=== PATIENT | male | born 1945 | race Caucasian/White ===

== ENCOUNTER 2019-02-27 16:52 | Observation (INO) | payer MEDICARE, OTHER ==
[~2019-02-27] VITALS: Ht 177.8 cm; Wt 111.9 kg
[~2019-02-27 16:52] MED LIST: ACET325; AMIO200 PO; AMLO10 PO; AMOX875 PO; ASPI81CH PO; ATEN50 PO; ATOR40TA PO; Aspirin EC81 MG PO; Bactrim Ds Tab1 EACH PO; CHOL10002 PO; DICL25ER PO; DICLOFENAC 50MG PO; DOCU100 PO; Diclofenac Sodi50 MG PO; FIBER500 MG PO; FURO20 PO; GLIM2 PO; GLIM4 PO; HYDACE5325 PO; HYDR1TAB94 PO; Hydrocodone-Ap1 EA23 PO; INVANZ IV; Invanz1 GM IV; LISI20 PO; LISI5 PO; LISINOPRIL PO; LOPE2C PO; Lisinopril2.5 MG PO; METF500 PO; MULT50L PO; Micro-K10 MEQ PO; NORVASC PO; OXYACE5T PO; OXYC5 PO; PIOG30 PO; POLY500 PO; POTA8 PO; PYRI100 PO; ROSU5 PO; SIMV10 PO; SIMV80 PO; SITA100T2 PO; TRAM50 PO; WARF5 PO; Zestril40 MG PO
[2019-02-27 17:46] LABS: BASOPHILS ABSOLUTE AUTO 0.06 K/mm3 (0.00-0.23); BASOPHILS PERCENT AUTO 1 % (0-2); EOSINOPHILS ABSOLUTE AUTO 0.17 K/mm3 (0.00-0.68); EOSINOPHILS PERCENT AUTO 1 % (0-6); Hematocrit 30.7 % (37.0-53.0); Hemoglobin 9.8 g/dL (13.5-17.5); IMMATURE GRAN ABSOLUTE AUTO 0.05 K/mm3 (0.00-0.10); IMMATURE GRAN PERCENT AUTO 0 % (0-1); LYMPHOCYTES ABSOLUTE AUTO 2.27 K/mm3 (0.84-5.20); LYMPHOCYTES PERCENT AUTO 19 % (21-46); MONOCYTES ABSOLUTE AUTO 1.15 K/mm3 (0.16-1.47); MONOCYTES PERCENT AUTO 9 % (4-13); Mean Corpuscular HGB 29.1 pg (26.0-34.0); Mean Corpuscular HGB Conc 31.9 g/dL (31.5-36.5); Mean Corpuscular Volume 91 fL (80-100); Mean Platelet Volume 10.6 fL (9.1-12.4); NEUTROPHILS ABSOLUTE AUTO 8.55 K/mm3 (1.96-9.15); NEUTROPHILS PERCENT AUTO 70 % (41-73); Platelet Count 310 K/mm3 (150-400); RDW Coefficient Variation 14.6 % (11.7-14.2); RDW Standard Deviation 48.2 fL (35.1-46.3); Red Blood Cell Count 3.37 M/mm3 (4.30-5.90); White Blood Cell Count 12.25 K/mm3 (4.00-11.30)
[2019-02-27 18:09] LABS: Alanine Aminotransfer (ALT/SGP 25 U/L (12-78); Albumin, Blood 3.4 g/dL (3.4-5.0); Albumin/Globulin Ratio 1.1 (0.8-1.8); Alk Phos 103 U/L (50-136); Anion Gap 6 mmol/L (6-16); Aspartate Aminotrans (AST/SGOT 22 U/L (12-37); Bilirubin, Total 0.3 mg/dL (0.1-1.0); Blood Urea Nitrogen 37 mg/dL (8-24); Bun/Creatinine Ratio 29.4 (12.0-20.0); CO2, Blood 25 mmol/L (21-32); Calcium, Blood 8.8 mg/dL (8.5-10.1); Chloride, Blood 107 mmol/L (98-108); Creatinine, Blood 1.26 mg/dL (0.60-1.20); Globulin, Blood 3.2 g/dL (2.2-4.0); Glomerular Filtration Rate 60 (60-); Glucose, Blood 136 mg/dL (70-99); Potassium, Blood 5.2 mmol/L (3.5-5.5); Sodium, Blood 138 mmol/L (136-145); Total Protein, Blood 6.6 g/dL (6.4-8.2); Troponin I <0.015 ng/mL (0.000-0.040)
[2019-02-27 18:16] LABS: Prothrombin Time Results 62.4 Sec (9.7-11.5)
[2019-02-27 18:21] LABS: International Normalized Ratio 7.03
[2019-02-27] MEDS ORDERED: METO50ER PO (19:23)
[2019-02-27] MEDS ORDERED: EZET10 PO (19:24)
[2019-02-27] MEDS ORDERED: Crestor40 MG PO (19:24)
[2019-02-27] MEDS ORDERED: Metformin HCl1000 MG PO (20:05)
[2019-02-27] MEDS ORDERED: Amlodipine Besy10 MG PO (20:06)
[2019-02-27] MEDS ORDERED: WARF5 PO (20:11)
[2019-02-27] MEDS ORDERED: FURO40 PO (20:12)
[2019-02-28 01:16] LABS: Hematocrit 26.7 % (37.0-53.0); Hemoglobin 8.6 g/dL (13.5-17.5)
[2019-02-28 01:30] LABS: International Normalized Ratio 2.15
[2019-02-28 02:09] LABS: Prothrombin Time Results 21.3 Sec (9.7-11.5)
--- NOTE | 2019-02-28 06:30 | NUR ---
SHIFT SUMMARY PT WAS A NEW ADMIT DURING THE NIGHT, ARRIVING ON THE FLOOR AT 2049. HE WAS ADMITTED FOR A SUPRATHERAPEUTIC INR WHILE ON COUMADIN, WITH A RECENT HX OF DARK STOOLS. PT IS A&O X 4, AND ABLE TO AMBULATE INDEPENDENTLY. NO COMPLAINTS OF PAIN, NAUSEA OR SOB DURING THE NIGHT. VITAL SIGNS STABLE. NO OTHER ACUTE CHANGES IN PT CONDITION NOTED DURING THE NIGHT. WILL CONTINUE TO MONITOR AND TREAT PER EMAR UNTIL HAND OFF TO DAY SHIFT RN.
[2019-02-28 07:36] LABS: BASOPHILS ABSOLUTE AUTO 0.05 K/mm3 (0.00-0.23); BASOPHILS PERCENT AUTO 1 % (0-2); EOSINOPHILS ABSOLUTE AUTO 0.18 K/mm3 (0.00-0.68); EOSINOPHILS PERCENT AUTO 2 % (0-6); Hematocrit 27.7 % (37.0-53.0); Hemoglobin 8.7 g/dL (13.5-17.5); IMMATURE GRAN ABSOLUTE AUTO 0.03 K/mm3 (0.00-0.10); IMMATURE GRAN PERCENT AUTO 0 % (0-1); LYMPHOCYTES PERCENT AUTO 18 % (21-46); MONOCYTES PERCENT AUTO 9 % (4-13); Mean Corpuscular HGB 28.8 pg (26.0-34.0); Mean Corpuscular HGB Conc 31.4 g/dL (31.5-36.5); Mean Corpuscular Volume 92 fL (80-100); Mean Platelet Volume 10.5 fL (9.1-12.4); NEUTROPHILS ABSOLUTE AUTO 7.27 K/mm3 (1.96-9.15); NEUTROPHILS PERCENT AUTO 70 % (41-73); Platelet Count 284 K/mm3 (150-400); RDW Coefficient Variation 14.8 % (11.7-14.2); RDW Standard Deviation 48.8 fL (35.1-46.3); Red Blood Cell Count 3.02 M/mm3 (4.30-5.90); White Blood Cell Count 10.33 K/mm3 (4.00-11.30)
[2019-02-28] MEDS ORDERED: FERSU300 PO (10:55)
--- NOTE | 2019-02-28 11:40 | NUR ---
DISCHARGE SUMMARY PATIENT NO ACUTE CONCERNS. ALL MEDICAITON AND INFORMATION QUESTIONS GIVEN TO PATIENT PRIOR TO DISCHARGE. PATIENT IV REMOVED AND PATIENT WHEELED DOWN.
== END 2019-02-28 11:19 | disposition home or self-care (01) ==
LOC: ER 16:52 → MEDS 16:54 → ER 19:54 → MEDS 19:54 → ENPENDDIS 02-28 10:12 → MEDS 02-28 11:19
PROVIDERS: Emergency Medicine; ADMIT Family Medicine
DX: R79.1 Abnormal coagulation profile (principal); K57.91 Diverticulosis of intestine, part unspecified, without perforation or abscess with bleeding; D50.0 Iron deficiency anemia secondary to blood loss (chronic); F32.9 Major depressive disorder, single episode, unspecified; E11.9 Type 2 diabetes mellitus without complications; I10 Essential (primary) hypertension; I48.92 Unspecified atrial flutter; E78.5 Hyperlipidemia, unspecified; I25.10 Atherosclerotic heart disease of native coronary artery without angina pectoris; G89.29 Other chronic pain; M48.00 Spinal stenosis, site unspecified; Z95.1 Presence of aortocoronary bypass graft; Z79.82 Long term (current) use of aspirin; Z79.01 Long term (current) use of anticoagulants; Z79.84 Long term (current) use of oral hypoglycemic drugs; Z79.899 Other long term (current) drug therapy
CPT/HCPCS: 36415; 80053; 82272; 82947; 84484; 85014; 85018; 85025; 85610; 86850; 86900; 86901; 94660; 94762; 96365; 99284-25; J3430

== ENCOUNTER 2019-03-26 01:40 | Inpatient (IN) | payer MEDICARE, OTHER ==
[~2019-03-26] VITALS: Ht 180.3 cm; Wt 114.4 kg
[~2019-03-26 01:40] MED LIST changes: +Amlodipine Besy10 MG PO; +Crestor40 MG PO; +EZET10 PO; +FERSU300 PO; +FURO40 PO; +METO50ER PO; +Metformin HCl1000 MG PO
[2019-03-26 02:03] LABS: BASOPHILS ABSOLUTE AUTO 0.04 K/mm3 (0.00-0.23); BASOPHILS PERCENT AUTO 0 % (0-2); EOSINOPHILS ABSOLUTE AUTO 0.07 K/mm3 (0.00-0.68); EOSINOPHILS PERCENT AUTO 0 % (0-6); Hematocrit 30.3 % (37.0-53.0); Hemoglobin 9.4 g/dL (13.5-17.5); IMMATURE GRAN ABSOLUTE AUTO 0.09 K/mm3 (0.00-0.10); IMMATURE GRAN PERCENT AUTO 1 % (0-1); LYMPHOCYTES ABSOLUTE AUTO 0.84 K/mm3 (0.84-5.20); LYMPHOCYTES PERCENT AUTO 5 % (21-46); MONOCYTES ABSOLUTE AUTO 1.18 K/mm3 (0.16-1.47); MONOCYTES PERCENT AUTO 7 % (4-13); Mean Corpuscular HGB 28.6 pg (26.0-34.0); Mean Corpuscular Volume 92 fL (80-100); NEUTROPHILS ABSOLUTE AUTO 14.89 K/mm3 (1.96-9.15); NEUTROPHILS PERCENT AUTO 87 % (41-73); Platelet Count 237 K/mm3 (150-400); RDW Coefficient Variation 13.7 % (11.7-14.2); RDW Standard Deviation 46.6 fL (35.1-46.3); Red Blood Cell Count 3.29 M/mm3 (4.30-5.90); White Blood Cell Count 17.11 K/mm3 (4.00-11.30)
[2019-03-26] MEDS ORDERED: ESCI10 PO (02:12)
[2019-03-26 02:32] LABS: Alanine Aminotransfer (ALT/SGP 18 U/L (12-78); Albumin, Blood 3.3 g/dL (3.4-5.0); Albumin/Globulin Ratio 0.9 (0.8-1.8); Alk Phos 99 U/L (50-136); Anion Gap 11 mmol/L (6-16); Aspartate Aminotrans (AST/SGOT 15 U/L (12-37); Bilirubin, Total 0.8 mg/dL (0.1-1.0); Blood Urea Nitrogen 28 mg/dL (8-24); Bun/Creatinine Ratio 23.3 (12.0-20.0); CO2, Blood 24 mmol/L (21-32); Chloride, Blood 103 mmol/L (98-108); Globulin, Blood 3.6 g/dL (2.2-4.0); Glomerular Filtration Rate >60 (60-); Glucose, Blood 201 mg/dL (70-99); Potassium, Blood 4.5 mmol/L (3.5-5.5); Sodium, Blood 138 mmol/L (136-145); Total Protein, Blood 6.9 g/dL (6.4-8.2); Troponin I 0.139 ng/mL (0.000-0.040)
[2019-03-26 03:16] LABS: International Normalized Ratio 1.15
--- NOTE | 2019-03-26 06:23 | NUR ---
SHIFT SUMMARY: PATIENT ARRIVED TO PCU5 VIA GURNEY FROM ER AT APPROX 0500, ADMISSION COMPLETED. PATIENT SKIN C/D/I, ABLE TO PIVOT TRANSFER FROM GURNEY TO BED WITH ONE PERSON ASSIST. PATIENT NEEDS ONE PERSON ASSIST WITH FWW FOR WALKING. PATIENT ORIENTED TO ROOM, CALL LIGHT AND HOSPITAL POLICIES. VSS, CALL LIGHT WITHIN REACH, BED LOW AND LOCKED WITH EXIT ALARM ON.
--- NOTE | 2019-03-26 08:15 | NUR ---
PT IS RESTING IN BED WITH NO COMPLAINTS OF SOB AND HE IS ALERT AND ORIENTED. PT IS WEARING OXYGEN 4L VIA NC. LUNGS ARE DIM AND CRACKLES NOTED BILAT BASES. PT ENCOURAGED TO DEEP BREATH AND COUGH. PT IS MEDICAL STATUS AND WILL TRANSFER TO ROOM 355 ONCE REPORT IS GIVEN.
--- NOTE | 2019-03-26 08:50 | NUR ---
PT TRANSFERRED TO MEDICAL FLOOR ROOM 355. REPORT CALLED TO MIRI LAW. BELONGINGS GATHERED AND TRANSPORTED WITH PT. PT WAS ESCORTED VIA WHEELCHAIR BY RN TO HIS NEW ROOM.
--- NOTE | 2019-03-26 10:41 | NUR ---
RECIEVED NOTIFICATION OF CRITICAL LAB VALUE. CALLED DR CRUZ'S OFFICE AND LEFT A MESSAGE. CALLED ANSWERING SERVICE AND SPOKE TO DR CRUZ. PT TROPONIN WAS CRITICALLY HIGH 4.9 DR CRUZ AWARE SHE WILL PUT IN ORDERS.
--- NOTE | 2019-03-26 14:25 | NUR ---
CALLED ANSWERING SERVICE- PT INCREASED SLIGHTLY IN RESP RATE AND SOUNDS MORE WHEEZY THAN PREVIOUS. CALLED RT FOR A TREATMENT NO ORDER; CALLED ANSWERING SERVICE TO GET ORDER FROM DR CRUZ FOR BREATHING Tx PROTOCOL.
--- NOTE | 2019-03-26 18:41 | NUR ---
SHIFT SUMMARY- PT TRANSFERED TO MEDICAL FLOOR THEN RECIEVED A CRITICAL LAB. CALLED DR CRUZ CONSULT FOR CARDIOLOGY CALLED TO DR MENSAH; HE CAME TO SEE THE PT. HEPARIN DRIP STARTED. PT PLACED ON TELE, EKG COMPLETED. LAST TROPONIN DRAWN AT 1801 AWAITING RESULT. PT DENIES ANY CHEST PAIN. PT WAS NOTED TO BE WHEEZING CALLED FOR B/D PROTOCOL. RT ADMINSTERED BREATHING Tx. PT HAS CPAP AT NIGHT AND CONT BIOX. PT DID HAVE AN ELEVATED TEMP AFTER TYLENOL OF 102.6. REDUCED THE ROOM TEMP, PT O2 SATS 88-91 ON 4L. INCREASED TO 5L VIA NC AND SATS CAME UP TO 92-94. PT TEMP BROKE A LITTLE LATER AND LAST CHECK TEMP WAS 98.2. PT HAS RECIEVED 80 MG IV LASIX. SO FREQUENTLY VISITS THE BATHROOM.
--- NOTE | 2019-03-26 23:47 | NUR ---
ASSUMED CARE OF PATIENT AT APPROXIMATELY 2009 FROM MIRI Santillan RN. PATIENT ALERT AND ORIENTED; ONE ASSIST OUT OF BED W/ FWW; CHRONIC LEFT LEG WEAKNESS; USES WALKER OR CANE AT BASELINE. PATIENT DENIES CP/PRESSURE, PAIN ELSEWHERE, DIZZINESS OR NAUSEA. PATIENT HAS CRITICALLY HIGH TROPONINS; HEPARIN GTT. NSR W/ BBB ON TELE; OXYGEN SATURATION ABOVE 90% ON 3LPM VIA NC OR CPAP. PATIENT HAS BEEN INCONTINENT OF URINE THREE TIMES SINCE ARRIVAL TO UNIT; PATIENT REPORTS DUE TO LASIX IV; REPORTS HE CANT CONTROL IT SOMETIMES; ATTENDS IN PLACE. OTHER PIV S/L. PATIENT EDUCATED ON NPO AT MIDNIGHT FOR POSSIBLE PROCEDURE IN AM. CALLED [employer] CERTIFIED POWERPLANT MECHANIC SIMON TO REPORT NO TROPONIN SCHEDULED AFTER 1800 TROPONIN; ORDERS RECIEVED. PATIENT CURRENTLY RESTING IN BED; CALL LIGHT IN REACH; BED IN LOWEST POSISTION; BED ALARM ON; WILL CONTINUE TO MONITOR AND ASSESS UNTIL END OF SHIFT.
[2019-03-27 01:13] LABS: BASOPHILS ABSOLUTE AUTO 0.05 K/mm3 (0.00-0.23); BASOPHILS PERCENT AUTO 0 % (0-2); EOSINOPHILS ABSOLUTE AUTO 0.07 K/mm3 (0.00-0.68); EOSINOPHILS PERCENT AUTO 1 % (0-6); Hematocrit 26.7 % (37.0-53.0); Hemoglobin 8.3 g/dL (13.5-17.5); IMMATURE GRAN ABSOLUTE AUTO 0.05 K/mm3 (0.00-0.10); IMMATURE GRAN PERCENT AUTO 0 % (0-1); LYMPHOCYTES ABSOLUTE AUTO 1.24 K/mm3 (0.84-5.20); LYMPHOCYTES PERCENT AUTO 10 % (21-46); MONOCYTES ABSOLUTE AUTO 1.22 K/mm3 (0.16-1.47); MONOCYTES PERCENT AUTO 10 % (4-13); Mean Corpuscular HGB 28.2 pg (26.0-34.0); Mean Corpuscular HGB Conc 31.1 g/dL (31.5-36.5); Mean Corpuscular Volume 91 fL (80-100); Mean Platelet Volume 10.7 fL (9.1-12.4); NEUTROPHILS ABSOLUTE AUTO 10.23 K/mm3 (1.96-9.15); NEUTROPHILS PERCENT AUTO 80 % (41-73); Platelet Count 222 K/mm3 (150-400); RDW Coefficient Variation 13.6 % (11.7-14.2); RDW Standard Deviation 44.8 fL (35.1-46.3); Red Blood Cell Count 2.94 M/mm3 (4.30-5.90); White Blood Cell Count 12.86 K/mm3 (4.00-11.30)
[2019-03-27 01:30] LABS: Anion Gap 6 mmol/L (6-16); Blood Urea Nitrogen 27 mg/dL (8-24); Bun/Creatinine Ratio 24.8 (12.0-20.0); CO2, Blood 29 mmol/L (21-32); Calcium, Blood 8.9 mg/dL (8.5-10.1); Chloride, Blood 100 mmol/L (98-108); Creatinine, Blood 1.09 mg/dL (0.60-1.20); Glomerular Filtration Rate >60 (60-); Glucose, Blood 137 mg/dL (70-99); Potassium, Blood 3.8 mmol/L (3.5-5.5); Sodium, Blood 135 mmol/L (136-145)
--- NOTE | 2019-03-27 06:12 | NUR ---
PATIENT SLEPT ABOUT SEVEN HOURS LAST NIGHT; PATIENT REPORTS SLEEPING MORE TONIGHT COMPARED TO LAST FEW NIGHTS. PATIENT SLEPT WITH CPAP ON FOR MOST OF NIGHT; SWITCHED TO NC LATER; REPORTED PATIENT TO HAVE ANGIO TODAY; NPO SINCE MIDNIGHT. VSS. WILL CONTINUE TO MONITOR AND ASSESS UNTIL END OF SHIFT.
--- NOTE | 2019-03-27 19:20 | NUR ---
SHIFT SUMMARY PT CONTINUES TO HAVE HEPARIN GTT INFUSING PER ORDERS. PT DECLINES ANY CP OR WORSENING SHORTNESS OF BREATH. WAS ABLE TO TITRATE PT'S O2 DOWN TO 2L NC TODAY. ENCOURAGED PT TO SIT IN CHAIR AND WORK ON DEEP BREATHING, WHICH HE WAS WILLING TO DO. TELEMETRY SHOWS NSR, WITH RATE IN THE 70'S. VITALS HAVE REMAINED STABLE.
--- NOTE | 2019-03-27 22:42 | NUR ---
ASSUMED CARE OF PATIENT AT APPROXIMATELY 1905 FROM JUAN A Bautista RN. PATIENT ALERT AND ORIENTED; ONE ASSIST OUT OF BED W/ FWW; CHRONIC LEFT LEG WEAKNESS; USES WALKER OR CANE AT BASELINE. PATIENT DENIES CP/PRESSURE, PAIN ELSEWHERE, DIZZINESS OR NAUSEA. HEPARIN GTT; REPORTED POSSIBLE ANGIO TOMORROW. AFLUTTER W/ BBB ON TELE; OXYGEN SATURATION ABOVE 90% ON 2LPM VIA NC OR CPAP. PATIENT REPORTS LAST BM FRIDAY; GIVEN APPLESAUCE; AMBULATED HALLWAY; BM SHORTLY AFTER WALK AROUND PCU; SAMPLE SENT; ATTENDS IN PLACE. OTHER PIV S/L. PATIENT EDUCATED ON NPO AT MIDNIGHT FOR POSSIBLE PROCEDURE IN AM. PATIENT CURRENTLY RESTING IN BED; CALL LIGHT IN REACH; BED IN LOWEST POSISTION; BED ALARM ON; WILL CONTINUE TO MONITOR AND ASSESS UNTIL END OF SHIFT.
[2019-03-27 22:54] LABS: Stool Occult Blood Guaiac 1 Neg (Neg)
[2019-03-28 00:21] LABS: BASOPHILS ABSOLUTE AUTO 0.04 K/mm3 (0.00-0.23); BASOPHILS PERCENT AUTO 0 % (0-2); EOSINOPHILS ABSOLUTE AUTO 0.31 K/mm3 (0.00-0.68); EOSINOPHILS PERCENT AUTO 3 % (0-6); Hematocrit 27.7 % (37.0-53.0); Hemoglobin 8.7 g/dL (13.5-17.5); IMMATURE GRAN ABSOLUTE AUTO 0.03 K/mm3 (0.00-0.10); IMMATURE GRAN PERCENT AUTO 0 % (0-1); LYMPHOCYTES ABSOLUTE AUTO 1.42 K/mm3 (0.84-5.20); LYMPHOCYTES PERCENT AUTO 15 % (21-46); MONOCYTES PERCENT AUTO 8 % (4-13); Mean Corpuscular HGB 28.3 pg (26.0-34.0); Mean Corpuscular HGB Conc 31.4 g/dL (31.5-36.5); Mean Corpuscular Volume 90 fL (80-100); Mean Platelet Volume 10.2 fL (9.1-12.4); NEUTROPHILS ABSOLUTE AUTO 6.94 K/mm3 (1.96-9.15); NEUTROPHILS PERCENT AUTO 73 % (41-73); Platelet Count 234 K/mm3 (150-400); RDW Coefficient Variation 13.5 % (11.7-14.2); RDW Standard Deviation 44.1 fL (35.1-46.3); Red Blood Cell Count 3.07 M/mm3 (4.30-5.90); White Blood Cell Count 9.54 K/mm3 (4.00-11.30)
[2019-03-28 00:39] LABS: Anion Gap 6 mmol/L (6-16); Blood Urea Nitrogen 31 mg/dL (8-24); Bun/Creatinine Ratio 29.8 (12.0-20.0); CO2, Blood 31 mmol/L (21-32); Chloride, Blood 98 mmol/L (98-108); Creatinine, Blood 1.04 mg/dL (0.60-1.20); Glomerular Filtration Rate >60 (60-); Glucose, Blood 140 mg/dL (70-99); Potassium, Blood 3.7 mmol/L (3.5-5.5); Sodium, Blood 135 mmol/L (136-145)
--- NOTE | 2019-03-28 06:07 | NUR ---
PATIENT SLEPT ABOUT EIGHT HOURS LAST NIGHT. NO ACUTE CHANGES. VSS. WILL CONTINUE TO MONITOR AND ASSESS UNTIL END OF SHIFT.
--- NOTE | 2019-03-28 08:52 | NUR ---
AM NOTE. ASSUMED CARE OF PT APROX 0700 PT IS A&Ox4 AND SBA W/FWW. PT WAS ADMITTED FOR PNA/SEPSIS AND WAS FOUND TO HAVE CP AND ELEVATED TROPONINS. PT CURRENTLY DENIES CHEST PAIN, PT IS ON HEPARIN GTT PER ORDERS. L/S CLEAR IN THE UPPER AND DIM IN THE LOWER BASES, PT IS ON 2 L NC WITH O2 SATS >94%, PT'S BASELINE IS RA. NO EDEMA IS NOTED ON ASSESSMENT. PT IS IN AFLUTTER IN THE 80'S-100'S. PT HAS BEEN NPO SINCE MIDNIGHT FOR POSSIBLE ANGIO TODAY. CALL LIGHT IN REACH, WILL CONTINUE TO MONITOR.
--- NOTE | 2019-03-28 18:03 | NUR ---
SHIFT SUMMARY... NO ACUTE NEGATIVE CHANGES NOTED THIS SHIFT. PT IS TO BE NPO AFTER MIDNIGHT FOR POSSIBLE ANGIO IN THE AM. PT DENIES ANY CHEST PAIN/PRESSURE N/V OR SOB ALL SHIFT. PT HAS BEEN TITRATED FROM 2L NC TO RA WHILE AWAKE, HOWEVER PT DESATS TO LOW 80'S WHILE SLEEPING AND HAS REQUIRED HIS CPAP OR 2L NC. PT HAS BEEN AMBULATING TO THE BATHROOM TO VOID W/FWW. CALL LIGHT IN REACH, BED IS LOCKED AND LOW WILL CONTINUE TO MONITOR UNTIL REPORT IS GIVEN TO ONCOMING RN.
--- NOTE | 2019-03-28 21:51 | NUR ---
ASSUMED CARE OF PATIENT AT APPROXIMATELY 1915 FROM ANA Mc RN. PATIENT ALERT AND ORIENTED; ONE ASSIST OUT OF BED W/ FWW; CHRONIC LEFT LEG WEAKNESS; USES WALKER OR CANE AT BASELINE. PATIENT DENIES CP/PRESSURE, PAIN ELSEWHERE, DIZZINESS OR NAUSEA. HEPARIN GTT; REPORTED POSSIBLE ANGIO TOMORROW. 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 USES URINAL IN BED; ATTENDS IN PLACE. OTHER PIV S/L. PATIENT EDUCATED ON NPO AT MIDNIGHT FOR POSSIBLE PROCEDURE IN AM. PATIENT CURRENTLY RESTING IN BED; CALL LIGHT IN REACH; BED IN LOWEST POSISTION; BED ALARM ON; WILL CONTINUE TO MONITOR AND ASSESS UNTIL END OF SHIFT.
--- NOTE | 2019-03-29 06:47 | NUR ---
PATIENT SLEPT ABOUT NINE HOURS LAST NIGHT. WORE CPAP FOR ABOUT THREE HOURS LAST NIGHT. 1LPM VIA NC FOR MOST OF THE NIGHT. VSS. NPO SINCE MIDNIGHT FOR POASSIBLE ANGIO. NO ACUTE CHANGES TO REPORT. WILL CONTINUE TO MONITOR AND ASSESS UNTIL END OF SHIFT.
[2019-03-29 08:02] LABS: BASOPHILS ABSOLUTE AUTO 0.08 K/mm3 (0.00-0.23); BASOPHILS PERCENT AUTO 1 % (0-2); EOSINOPHILS ABSOLUTE AUTO 0.44 K/mm3 (0.00-0.68); EOSINOPHILS PERCENT AUTO 5 % (0-6); Hematocrit 27.2 % (37.0-53.0); Hemoglobin 8.5 g/dL (13.5-17.5); IMMATURE GRAN ABSOLUTE AUTO 0.04 K/mm3 (0.00-0.10); IMMATURE GRAN PERCENT AUTO 0 % (0-1); LYMPHOCYTES ABSOLUTE AUTO 1.66 K/mm3 (0.84-5.20); LYMPHOCYTES PERCENT AUTO 18 % (21-46); MONOCYTES ABSOLUTE AUTO 0.72 K/mm3 (0.16-1.47); MONOCYTES PERCENT AUTO 8 % (4-13); Mean Corpuscular HGB 28.2 pg (26.0-34.0); Mean Corpuscular HGB Conc 31.3 g/dL (31.5-36.5); Mean Corpuscular Volume 90 fL (80-100); Mean Platelet Volume 11.3 fL (9.1-12.4); NEUTROPHILS ABSOLUTE AUTO 6.17 K/mm3 (1.96-9.15); NEUTROPHILS PERCENT AUTO 68 % (41-73); Platelet Count 295 K/mm3 (150-400); RDW Coefficient Variation 13.2 % (11.7-14.2); RDW Standard Deviation 44.3 fL (35.1-46.3); Red Blood Cell Count 3.01 M/mm3 (4.30-5.90); White Blood Cell Count 9.11 K/mm3 (4.00-11.30)
[2019-03-29 08:09] LABS: Anion Gap 8 mmol/L (6-16); Blood Urea Nitrogen 25 mg/dL (8-24); Bun/Creatinine Ratio 28.7 (12.0-20.0); CO2, Blood 29 mmol/L (21-32); Calcium, Blood 9.5 mg/dL (8.5-10.1); Chloride, Blood 100 mmol/L (98-108); Creatinine, Blood 0.87 mg/dL (0.60-1.20); Glomerular Filtration Rate >60 (60-); Glucose, Blood 157 mg/dL (70-99); Potassium, Blood 3.9 mmol/L (3.5-5.5); Sodium, Blood 137 mmol/L (136-145)
--- NOTE | 2019-03-29 08:24 | NUR ---
AM NOTE. ASSUMED CARE OF PT APROX 0700. PT IS A&Ox4 AND WAS ADMITTED FOR PNA/SEPSIS AND CP W/ELEVATED TROPS. PT HAS BEEN NPO FOR POSSIBLE ANGIO TODAY. PT HAS BEEN ON HEPARIN GTT PER ORDRES. PT IS IN AFLUTTER 70'S-80'S PER CEO AND PRESIDENT. NO EDEMA IS NOTED ON ASSSESSMENT. L/S CLEAR IN THE UPPER/MID LOBES AND DIM IN THE LOWER, PT IS ON RA WHILE AWAKE AND 1-2L NC OR CPAP WHILE ASLEEP. BT PRESENT AND HYPERACTIVE, ABD IS SOFT AND NONTENDER TO PALP. PT DENIES CHEST PAIN/PRESSURE AT THIS TIME. CALL LIGHT IN REACH, WILL CONTINUE TO MONITOR.
--- NOTE | 2019-03-29 18:05 | NUR ---
SHIFT SUMMARY. PT RETURNED FROM THE CHIEF STATION ENGINEER APROX 1200. PT'S VS HAVE BEEN STABLE. PT HAS RIGHT RADIAL SITE, NO BLEEDING OR HEMATOMA IS NOTED. PT DENIES ANY CHEST PAIN/PRESSURE N/V OR SOB. PT IS TO D/C ONCE TR BAND IS OFF AND HE IS FULLY RECOVERED. PT'S IS AT THE BEDSIDE. CALL LIGHT IN REACH, BED IS LOCKED AND LOW WILL CONTINUE TO MONITOR UNTIL REPORT IS GIVEN TO ONCOMING RN OR PT IS D/C'D HOME.
[2019-03-29] MEDS ORDERED: AZIT250 PO (18:53)
== END 2019-03-29 19:55 | disposition home or self-care (01) | DRG 871 ==
LOC: ER 01:40 → PCU 05:03 → MEDS 05:03 → PCU 05:09 → MEDS 09:00 → PCU 20:05
PROVIDERS: Emergency Medicine; Internal Medicine Cardiovascular Disease; ADMIT Hospitalist
PROC: 4A023N7 Measurement of Cardiac Sampling and Pressure, Left Heart, Percutaneous Approach (ICD-10-PCS; principal; 2019-03-29)
PROC: B211YZZ Fluoroscopy of Multiple Coronary Arteries using Other Contrast (ICD-10-PCS; 2019-03-29)
DX: A41.9 Sepsis, unspecified organism (principal); J18.9 Pneumonia, unspecified organism; J96.01 Acute respiratory failure with hypoxia; I21.4 Non-ST elevation (NSTEMI) myocardial infarction; I50.33 Acute on chronic diastolic (congestive) heart failure; D62 Acute posthemorrhagic anemia; I48.92 Unspecified atrial flutter; E78.5 Hyperlipidemia, unspecified; G47.33 Obstructive sleep apnea (adult) (pediatric); E11.59 Type 2 diabetes mellitus with other circulatory complications; I11.0 Hypertensive heart disease with heart failure
CPT/HCPCS: 36415; 71046; 80048; 80053; 82270; 82947; 83605; 84484; 85025; 85347; 85610; 85730; 87040; 93005; 93010; 93306; 93455; 94640; 94660; 94762; 96365; 96367; 99152; 99153; 99285-25; A9270; C1769; C1894; G0378; J0456; J0696; J1644; J1940; J2250; J3010; J7030; J7050; Q9967

== ENCOUNTER 2019-05-09 00:32 | Inpatient (IN) | payer MEDICARE, OTHER ==
[~2019-05-09] VITALS: Ht 180.3 cm; Wt 109.8 kg
[~2019-05-09 00:32] MED LIST changes: +AZIT250 PO; +ESCI10 PO
[2019-05-09 01:02] LABS: BASOPHILS ABSOLUTE AUTO 0.04 K/mm3 (0.00-0.23); BASOPHILS PERCENT AUTO 0 % (0-2); EOSINOPHILS ABSOLUTE AUTO 0.22 K/mm3 (0.00-0.68); EOSINOPHILS PERCENT AUTO 2 % (0-6); Hemoglobin 7.2 g/dL (13.5-17.5); IMMATURE GRAN ABSOLUTE AUTO 0.05 K/mm3 (0.00-0.10); IMMATURE GRAN PERCENT AUTO 0 % (0-1); LYMPHOCYTES ABSOLUTE AUTO 1.74 K/mm3 (0.84-5.20); LYMPHOCYTES PERCENT AUTO 15 % (21-46); MONOCYTES ABSOLUTE AUTO 0.86 K/mm3 (0.16-1.47); MONOCYTES PERCENT AUTO 7 % (4-13); Mean Corpuscular HGB 27.8 pg (26.0-34.0); Mean Corpuscular HGB Conc 31.3 g/dL (31.5-36.5); Mean Corpuscular Volume 89 fL (80-100); Mean Platelet Volume 10.3 fL (9.1-12.4); NEUTROPHILS ABSOLUTE AUTO 9.11 K/mm3 (1.96-9.15); NEUTROPHILS PERCENT AUTO 76 % (41-73); Platelet Count 332 K/mm3 (150-400); RDW Coefficient Variation 13.8 % (11.7-14.2); RDW Standard Deviation 44.4 fL (35.1-46.3); Red Blood Cell Count 2.59 M/mm3 (4.30-5.90); White Blood Cell Count 12.02 K/mm3 (4.00-11.30)
[2019-05-09 01:16] LABS: Troponin I 0.023 ng/mL (0.000-0.040)
[2019-05-09 01:17] LABS: Albumin, Blood 3.3 g/dL (3.4-5.0); Albumin/Globulin Ratio 1.1 (0.8-1.8); Bilirubin, Total 0.2 mg/dL (0.1-1.0); Bun/Creatinine Ratio 33.3 (12.0-20.0); Calcium, Blood 8.9 mg/dL (8.5-10.1); Creatinine, Blood 1.35 mg/dL (0.60-1.20); Globulin, Blood 3.1 g/dL (2.2-4.0); Potassium, Blood 4.6 mmol/L (3.5-5.5); Total Protein, Blood 6.4 g/dL (6.4-8.2)
[2019-05-09 01:25] LABS: Prothrombin Time Results 39.9 Sec (9.7-11.5)
[2019-05-09 01:27] LABS: International Normalized Ratio 4.04
[2019-05-09 07:38] LABS: Hematocrit 25.3 % (37.0-53.0); Mean Corpuscular HGB 28.2 pg (26.0-34.0); Mean Corpuscular HGB Conc 31.6 g/dL (31.5-36.5); Mean Corpuscular Volume 89 fL (80-100); Mean Platelet Volume 10.3 fL (9.1-12.4); Platelet Count 300 K/mm3 (150-400); RDW Coefficient Variation 13.7 % (11.7-14.2); RDW Standard Deviation 44.7 fL (35.1-46.3); Red Blood Cell Count 2.84 M/mm3 (4.30-5.90); White Blood Cell Count 10.58 K/mm3 (4.00-11.30)
[2019-05-09 07:54] LABS: Albumin, Blood 3.2 g/dL (3.4-5.0); Albumin/Globulin Ratio 1.1 (0.8-1.8); Bilirubin, Total 0.6 mg/dL (0.1-1.0); Bun/Creatinine Ratio 30.7 (12.0-20.0); Calcium, Blood 8.7 mg/dL (8.5-10.1); Creatinine, Blood 1.27 mg/dL (0.60-1.20); Potassium, Blood 4.7 mmol/L (3.5-5.5); Total Protein, Blood 6.2 g/dL (6.4-8.2)
[2019-05-09 13:32] LABS: Hemoglobin 8.5 g/dL (13.5-17.5)
[2019-05-09 18:16] LABS: Hematocrit 25.2 % (37.0-53.0)
[2019-05-09 18:31] LABS: International Normalized Ratio 1.57; Prothrombin Time Results 16.4 Sec (9.7-11.5)
[2019-05-10 01:15] LABS: BASOPHILS ABSOLUTE AUTO 0.07 K/mm3 (0.00-0.23); BASOPHILS PERCENT AUTO 0 % (0-2); EOSINOPHILS ABSOLUTE AUTO 0.34 K/mm3 (0.00-0.68); EOSINOPHILS PERCENT AUTO 2 % (0-6); Hematocrit 28.5 % (37.0-53.0); Hemoglobin 8.9 g/dL (13.5-17.5); IMMATURE GRAN ABSOLUTE AUTO 0.07 K/mm3 (0.00-0.10); IMMATURE GRAN PERCENT AUTO 0 % (0-1); LYMPHOCYTES ABSOLUTE AUTO 2.19 K/mm3 (0.84-5.20); LYMPHOCYTES PERCENT AUTO 14 % (21-46); MONOCYTES ABSOLUTE AUTO 1.21 K/mm3 (0.16-1.47); MONOCYTES PERCENT AUTO 8 % (4-13); Mean Corpuscular HGB 27.6 pg (26.0-34.0); Mean Corpuscular HGB Conc 31.2 g/dL (31.5-36.5); Mean Corpuscular Volume 89 fL (80-100); Mean Platelet Volume 10.3 fL (9.1-12.4); NEUTROPHILS ABSOLUTE AUTO 11.96 K/mm3 (1.96-9.15); NEUTROPHILS PERCENT AUTO 76 % (41-73); Platelet Count 365 K/mm3 (150-400); RDW Coefficient Variation 13.7 % (11.7-14.2); RDW Standard Deviation 44.2 fL (35.1-46.3); Red Blood Cell Count 3.22 M/mm3 (4.30-5.90); White Blood Cell Count 15.84 K/mm3 (4.00-11.30)
[2019-05-10 01:29] LABS: Albumin, Blood 3.6 g/dL (3.4-5.0); Anion Gap 7 mmol/L (6-16); Blood Urea Nitrogen 28 mg/dL (8-24); Bun/Creatinine Ratio 26.4 (12.0-20.0); CO2, Blood 25 mmol/L (21-32); Calcium, Blood 9.1 mg/dL (8.5-10.1); Chloride, Blood 109 mmol/L (98-108); Creatinine, Blood 1.06 mg/dL (0.60-1.20); Glomerular Filtration Rate >60 (60-); Glucose, Blood 128 mg/dL (70-99); Phosphorus, Blood 3.3 mg/dL (2.5-4.9); Potassium, Blood 4.5 mmol/L (3.5-5.5); Sodium, Blood 141 mmol/L (136-145)
[2019-05-10 07:22] LABS: Hematocrit 28.9 % (37.0-53.0); Hemoglobin 9.1 g/dL (13.5-17.5)
[2019-05-11 05:26] LABS: BASOPHILS ABSOLUTE AUTO 0.06 K/mm3 (0.00-0.23); BASOPHILS PERCENT AUTO 1 % (0-2); EOSINOPHILS ABSOLUTE AUTO 0.16 K/mm3 (0.00-0.68); EOSINOPHILS PERCENT AUTO 1 % (0-6); Hematocrit 24.9 % (37.0-53.0); Hemoglobin 7.9 g/dL (13.5-17.5); IMMATURE GRAN ABSOLUTE AUTO 0.05 K/mm3 (0.00-0.10); IMMATURE GRAN PERCENT AUTO 0 % (0-1); LYMPHOCYTES ABSOLUTE AUTO 1.48 K/mm3 (0.84-5.20); LYMPHOCYTES PERCENT AUTO 12 % (21-46); MONOCYTES ABSOLUTE AUTO 1.38 K/mm3 (0.16-1.47); MONOCYTES PERCENT AUTO 11 % (4-13); Mean Corpuscular HGB 27.8 pg (26.0-34.0); Mean Corpuscular HGB Conc 31.7 g/dL (31.5-36.5); Mean Corpuscular Volume 88 fL (80-100); Mean Platelet Volume 10.7 fL (9.1-12.4); NEUTROPHILS ABSOLUTE AUTO 9.26 K/mm3 (1.96-9.15); NEUTROPHILS PERCENT AUTO 75 % (41-73); Platelet Count 321 K/mm3 (150-400); RDW Coefficient Variation 13.9 % (11.7-14.2); RDW Standard Deviation 44.6 fL (35.1-46.3); Red Blood Cell Count 2.84 M/mm3 (4.30-5.90); White Blood Cell Count 12.39 K/mm3 (4.00-11.30)
[2019-05-11 05:51] LABS: Anion Gap 8 mmol/L (6-16); Blood Urea Nitrogen 19 mg/dL (8-24); Bun/Creatinine Ratio 18.3 (12.0-20.0); CO2, Blood 24 mmol/L (21-32); Calcium, Blood 9.2 mg/dL (8.5-10.1); Chloride, Blood 105 mmol/L (98-108); Creatinine, Blood 1.04 mg/dL (0.60-1.20); Glomerular Filtration Rate >60 (60-); Glucose, Blood 181 mg/dL (70-99); Potassium, Blood 4.2 mmol/L (3.5-5.5); Sodium, Blood 137 mmol/L (136-145)
[2019-05-11 10:00] LABS: Hematocrit 25.7 % (37.0-53.0); Hemoglobin 8.2 g/dL (13.5-17.5)
[2019-05-12 05:54] LABS: Hematocrit 25.7 % (37.0-53.0); Hemoglobin 8.2 g/dL (13.5-17.5); Mean Corpuscular HGB 28.3 pg (26.0-34.0); Mean Corpuscular HGB Conc 31.9 g/dL (31.5-36.5); Mean Corpuscular Volume 89 fL (80-100); Mean Platelet Volume 10.3 fL (9.1-12.4); Platelet Count 341 K/mm3 (150-400); RDW Coefficient Variation 13.9 % (11.7-14.2); RDW Standard Deviation 45.1 fL (35.1-46.3); White Blood Cell Count 10.93 K/mm3 (4.00-11.30)
[2019-05-12] MEDS ORDERED: PANT40 PO ×2 (11:55→12:06)
[2019-05-12] MEDS ORDERED: WARF7.5 PO (15:44)
== END 2019-05-12 17:23 | disposition home or self-care (01) | DRG 378 ==
LOC: ER 00:32 → ICUE 00:33 → ICUW 00:33 → ER 03:10 → ICUE 03:10 → ICUW 03:12 → ICUE 04:52 → MEDS 05-10 22:15 → ENPENDDIS 05-12 11:00 → MEDS 05-12 17:23
PROVIDERS: Emergency Medicine; Family Medicine; Internal Medicine Gastroenterology; ADMIT Internal Medicine
PROC: 30233N1 Transfusion of Nonautologous Red Blood Cells into Peripheral Vein, Percutaneous Approach (ICD-10-PCS; 2019-05-09)
PROC: 3E02340 Introduction of Influenza Vaccine into Muscle, Percutaneous Approach (ICD-10-PCS; 2019-05-09)
PROC: 0DJ08ZZ Inspection of Upper Intestinal Tract, Via Natural or Artificial Opening Endoscopic (ICD-10-PCS; principal; 2019-05-10 11:15)
DX: K92.2 Gastrointestinal hemorrhage, unspecified (principal); D62 Acute posthemorrhagic anemia; Z68.41 Body mass index [BMI] 40.0-44.9, adult; E87.5 Hyperkalemia; E11.9 Type 2 diabetes mellitus without complications; E78.5 Hyperlipidemia, unspecified; I10 Essential (primary) hypertension; Z95.1 Presence of aortocoronary bypass graft; Z79.01 Long term (current) use of anticoagulants; I25.10 Atherosclerotic heart disease of native coronary artery without angina pectoris; Z79.84 Long term (current) use of oral hypoglycemic drugs; E66.9 Obesity, unspecified; I25.2 Old myocardial infarction; Z23 Encounter for immunization
CPT/HCPCS: 36415; 36430; 71046; 78278; 80048; 80053; 80069; 82272; 82947; 83880; 84484; 85014; 85018; 85025; 85027; 85610; 86850; 86900; 86901; 86923; 90686; 93005; 93010; 94762; 96365; 96375; 96376; 99285-25; A9560; C9113; G0008; G0378; J1644; J2250; J2704; J3430; J7030; J7120; P9016

== ENCOUNTER → 2019-08-23 | Outpatient (CLI) | payer MEDICARE, OTHER ==
[~2019-08-23] MED LIST changes: +PANT40 PO; +WARF7.5 PO
[2019-08-23 14:50] LABS: BASOPHILS ABSOLUTE AUTO 0.09 K/mm3 (0.00-0.23); BASOPHILS PERCENT AUTO 1 % (0-2); EOSINOPHILS ABSOLUTE AUTO 0.25 K/mm3 (0.00-0.68); EOSINOPHILS PERCENT AUTO 2 % (0-6); Hematocrit 33.8 % (37.0-53.0); Hemoglobin 10.2 g/dL (13.5-17.5); IMMATURE GRAN ABSOLUTE AUTO 0.06 K/mm3 (0.00-0.10); IMMATURE GRAN PERCENT AUTO 1 % (0-1); LYMPHOCYTES ABSOLUTE AUTO 1.74 K/mm3 (0.84-5.20); LYMPHOCYTES PERCENT AUTO 15 % (21-46); MONOCYTES ABSOLUTE AUTO 0.92 K/mm3 (0.16-1.47); MONOCYTES PERCENT AUTO 8 % (4-13); Mean Corpuscular HGB 26.8 pg (26.0-34.0); Mean Corpuscular HGB Conc 30.2 g/dL (31.5-36.5); Mean Corpuscular Volume 89 fL (80-100); Mean Platelet Volume 11.3 fL (9.1-12.4); NEUTROPHILS PERCENT AUTO 74 % (41-73); Platelet Count 331 K/mm3 (150-400); RDW Coefficient Variation 15.1 % (11.7-14.2); RDW Standard Deviation 47.8 fL (35.1-46.3); Red Blood Cell Count 3.81 M/mm3 (4.30-5.90); White Blood Cell Count 11.86 K/mm3 (4.00-11.30)
[2019-08-23 15:00] LABS: International Normalized Ratio 1.7; Prothrombin Time Results 17.7 Sec (9.7-11.5)
== END | disposition home or self-care (01) ==
LOC: LAB SHORT 11:40 → LAB 11:40
PROVIDERS: Hospitalist
DX: I48.0 Paroxysmal atrial fibrillation (principal); D62 Acute posthemorrhagic anemia
CPT/HCPCS: 85025; 85610

== ENCOUNTER 2020-04-03 19:34 | Emergency (ER) | payer MEDICARE, OTHER ==
[~2020-04-03] VITALS: Ht 180.3 cm; Wt 106.6 kg
[2020-04-03 20:04] LABS: BASOPHILS ABSOLUTE AUTO 0.05 K/mm3 (0.00-0.23); BASOPHILS PERCENT AUTO 1 % (0-2); EOSINOPHILS ABSOLUTE AUTO 0.29 K/mm3 (0.00-0.68); EOSINOPHILS PERCENT AUTO 3 % (0-6); Hematocrit 40.8 % (37.0-53.0); Hemoglobin 12.8 g/dL (13.5-17.5); IMMATURE GRAN ABSOLUTE AUTO 0.05 K/mm3 (0.00-0.10); IMMATURE GRAN PERCENT AUTO 1 % (0-1); LYMPHOCYTES ABSOLUTE AUTO 2.15 K/mm3 (0.84-5.20); LYMPHOCYTES PERCENT AUTO 23 % (21-46); MONOCYTES ABSOLUTE AUTO 0.63 K/mm3 (0.16-1.47); MONOCYTES PERCENT AUTO 7 % (4-13); Mean Corpuscular HGB 28.8 pg (26.0-34.0); Mean Corpuscular HGB Conc 31.4 g/dL (31.5-36.5); Mean Corpuscular Volume 92 fL (80-100); Mean Platelet Volume 10.6 fL (9.1-12.4); NEUTROPHILS ABSOLUTE AUTO 6.31 K/mm3 (1.96-9.15); NEUTROPHILS PERCENT AUTO 67 % (41-73); Platelet Count 241 K/mm3 (150-400); RDW Coefficient Variation 12.2 % (11.7-14.2); RDW Standard Deviation 40.5 fL (35.1-46.3); Red Blood Cell Count 4.45 M/mm3 (4.30-5.90); White Blood Cell Count 9.48 K/mm3 (4.00-11.30)
[2020-04-03 20:05] LABS: Calcium, Ionized (POC) 1.16 mmol/L (1.10-1.46); Chloride (POC) 101 mmol/L (98-108); Creatinine (POC) 1.2 mg/dL (0.8-1.3); Glucose (ISTAT POC) 148 mg/dL (70-99); Hemoglobin (POC) 11.6 g/dL (13.5-17.5); Potassium (POC) 4.5 mmol/L (3.5-5.5); Sodium (POC) 138 mmol/L (135-148); Total CO2 (POC) 27 mmol/L (21-32)
[2020-04-03 20:24] LABS: Alanine Aminotransfer (ALT/SGP 19 U/L (12-78); Albumin/Globulin Ratio 1.1 (0.8-1.8); Alk Phos 129 U/L (50-136); Anion Gap 5 mmol/L (6-16); Aspartate Aminotrans (AST/SGOT 21 U/L (12-37); Bilirubin, Total 0.3 mg/dL (0.1-1.0); Blood Urea Nitrogen 22 mg/dL (8-24); Bun/Creatinine Ratio 18.3 (12.0-20.0); CO2, Blood 32 mmol/L (21-32); Chloride, Blood 102 mmol/L (98-108); Globulin, Blood 3.6 g/dL (2.2-4.0); Glomerular Filtration Rate >60 (60-); Glucose, Blood 144 mg/dL (70-99); Sodium, Blood 139 mmol/L (136-145); Total Protein, Blood 7.6 g/dL (6.4-8.2)
[2020-04-03 20:45] LABS: Calcium, Blood 9.5 mg/dL (8.5-10.1); Potassium, Blood 4.5 mmol/L (3.5-5.5)
== END 2020-04-03 20:59 | disposition home or self-care (01) ==
LOC: ER 19:34
PROVIDERS: Emergency Medicine; Physician Assistant
DX: E87.5 Hyperkalemia (principal); R79.9 Abnormal finding of blood chemistry, unspecified; I25.10 Atherosclerotic heart disease of native coronary artery without angina pectoris; I10 Essential (primary) hypertension; E78.5 Hyperlipidemia, unspecified; E11.9 Type 2 diabetes mellitus without complications; Z95.1 Presence of aortocoronary bypass graft; Z79.899 Other long term (current) drug therapy; Z79.01 Long term (current) use of anticoagulants; Z79.84 Long term (current) use of oral hypoglycemic drugs
CPT/HCPCS: 36415; 80047; 80053; 82330; 84484; 85014; 85025; 93005; 93010; 99283-25

== ENCOUNTER → 2020-05-23 | Outpatient (CLI) | payer MEDICARE, OTHER ==
[~2020-05-23] MED LIST changes: +ELIQUIS5 MG PO; +FAMO20 PO; +FISH OIL PO; +GLIP10; -Metformin HCl1000 MG PO; +NITR.4SL SL; +NITRO-DUR1 EACH TOP; +POTA10T PO; +PROBIOTICS PO; +RANO500T PO
== END | disposition home or self-care (01) ==
LOC: LAB 07:53 → LAB SHORT 07:53
DX: B35.1 Tinea unguium (principal); L60.2 Onychogryphosis
CPT/HCPCS: 88305; 88312

== ENCOUNTER 2020-10-06 08:27 | Day surgery (SDC) | payer MEDICARE, OTHER ==
[~2020-10-06] VITALS: Ht 180.3 cm; Wt 111.0 kg
--- NOTE | 2020-10-06 08:45 | NUR ---
AMBULATED TO RECOVERY ROOM.DENIES CHEST PAIN.
--- NOTE | 2020-10-06 10:45 | NUR ---
TO RECOVERY ROOM. FEMSTOP IN PLACE RIGHT GROIN AT 120MM HGB.
--- NOTE | 2020-10-06 11:48 | NUR ---
FEMOSTOP LOWERED TO 60 MM/HG ORDERED TO THE RFA. PULSE TO THE RIGHT DP 1+
--- NOTE | 2020-10-06 11:55 | NUR ---
DR. FULTON HERE TO SEE PT. FEMSTOP REMOVED DUE TO LEG CRAMPING. PT STATES CRAMPING IS LETTING UP.
--- NOTE | 2020-10-06 14:06 | NUR ---
AMBUKLATED IN [place] AND TO BATHROOM. TOLERATED WELL. NO BLEEDING AT SITE.
--- NOTE | 2020-10-06 14:15 | NUR ---
DRESSED FOR DISCHARGE AFTER AMBULATING IN [place]. DISCHARGE INSTRUCTIONS GIVEN WITH VERBAL AND WRITTEN UNDERSTANDING
--- NOTE | 2020-10-06 14:48 | NUR ---
DISCHARGED HOME VIA WHEELCHAIR. DRIVING. CARDIOLOGY OFFICE ([facility]) CALLED TO ARRANGE TAVR CONSULT.
== END 2020-10-06 15:04 | disposition home or self-care (01) ==
LOC: MHTC 08:27
DX: I25.118 Atherosclerotic heart disease of native coronary artery with other forms of angina pectoris (principal); I25.718 Atherosclerosis of autologous vein coronary artery bypass graft(s) with other forms of angina pectoris; I35.0 Nonrheumatic aortic (valve) stenosis; I11.0 Hypertensive heart disease with heart failure; I50.9 Heart failure, unspecified; I48.0 Paroxysmal atrial fibrillation; F33.1 Major depressive disorder, recurrent, moderate; E11.9 Type 2 diabetes mellitus without complications; I44.1 Atrioventricular block, second degree; Z95.1 Presence of aortocoronary bypass graft
CPT/HCPCS: 76937; 93455; 99152; 99153; A9270; C1760; C1769; C1894; J2250; J3010; J7030; J7050; Q9967

== ENCOUNTER → 2021-07-03 | Outpatient (CLI) | payer MEDICARE, OTHER ==
[~2021-07-03] MED LIST changes: +ATOR80 PO; +Acetaminophen325 M1 PO; +CEFAZOLIN2 GM/50 M3 IV; +DIAZ2 PO; +DOXY100 PO; +GABA100 PO; +HUMULIN R100 UNIT/2 SC; +INSULANI SC; +MECL12.5 PO; +METF500C PO; +METFORMIN HCL500 M3 PO; +MIRT15 PO; +Nitro-Dur1 EACH TOP; +Nitroglycerin1 EACH TOP; +ONDA4ODT MM; +POTCHL20ER PO; +PRAM.125 PO; +SULFAMETHOXAZO1 EAC1 PO; +TAMS.4ER PO; +VISBIOME 112.51 EACH PO
[2021-07-03 15:03] LABS: BASOPHILS ABSOLUTE AUTO 0.07 K/mm3 (0.00-0.23); BASOPHILS PERCENT AUTO 1 % (0-2); EOSINOPHILS ABSOLUTE AUTO 0.33 K/mm3 (0.00-0.68); EOSINOPHILS PERCENT AUTO 2 % (0-6); Hematocrit 32.3 % (37.0-53.0); Hemoglobin 9.7 g/dL (13.5-17.5); IMMATURE GRAN ABSOLUTE AUTO 0.07 K/mm3 (0.00-0.10); IMMATURE GRAN PERCENT AUTO 1 % (0-1); LYMPHOCYTES ABSOLUTE AUTO 1.07 K/mm3 (0.84-5.20); LYMPHOCYTES PERCENT AUTO 8 % (21-46); MONOCYTES ABSOLUTE AUTO 0.87 K/mm3 (0.16-1.47); MONOCYTES PERCENT AUTO 6 % (4-13); Mean Corpuscular HGB 23.7 pg (26.0-34.0); Mean Corpuscular Volume 79 fL (80-100); NEUTROPHILS PERCENT AUTO 83 % (41-73); Platelet Count 346 K/mm3 (150-400); RDW Coefficient Variation 19.9 % (11.7-14.2); RDW Standard Deviation 57.3 fL (35.1-46.3); Red Blood Cell Count 4.09 M/mm3 (4.30-5.90); White Blood Cell Count 14.11 K/mm3 (4.00-11.30)
[2021-07-03 15:45] LABS: Albumin, Blood 2.7 g/dL (3.4-5.0); Albumin/Globulin Ratio 0.8 (0.8-1.8); Bilirubin, Total 0.5 mg/dL (0.1-1.0); Bun/Creatinine Ratio 18.7 (12.0-20.0); Calcium, Blood 8.9 mg/dL (8.5-10.1); Creatinine, Blood 1.23 mg/dL (0.60-1.20); Globulin, Blood 3.5 g/dL (2.2-4.0); Potassium, Blood 4.6 mmol/L (3.5-5.5); Total Protein, Blood 6.2 g/dL (6.4-8.2)
== END ==
LOC: LAB SHORT 11:25 → LAB 11:25
PROVIDERS: Hospitalist
DX: E11.42 Type 2 diabetes mellitus with diabetic polyneuropathy (principal); I10 Essential (primary) hypertension
CPT/HCPCS: 80053; 83036; 85025

== ENCOUNTER 2021-07-28 07:50 | Emergency (ER) | payer MEDICARE, OTHER ==
[~2021-07-28] VITALS: Ht 180.3 cm; Wt 106.6 kg
[~2021-07-28 07:50] MED LIST changes: -ATOR80 PO; -Acetaminophen325 M1 PO; -CEFAZOLIN2 GM/50 M3 IV; -DIAZ2 PO; -DOXY100 PO; -GABA100 PO; -HUMULIN R100 UNIT/2 SC; -INSULANI SC; -MECL12.5 PO; -METF500C PO; -MIRT15 PO; -Nitro-Dur1 EACH TOP; -Nitroglycerin1 EACH TOP; -ONDA4ODT MM; -POTCHL20ER PO; -PRAM.125 PO; -SULFAMETHOXAZO1 EAC1 PO; -TAMS.4ER PO; -VISBIOME 112.51 EACH PO
[2021-07-28] MEDS ORDERED: DIAZ2 PO (09:50)
[2021-07-30] MEDS ORDERED: LISI5 PO (00:35)
[2022-01-05] MEDS ORDERED: ATOR80 PO (02:29)
[2022-01-05] MEDS ORDERED: PRAM.125 PO (02:32)
[2022-01-05] MEDS ORDERED: MIRT15 PO (02:33)
[2022-01-05] MEDS ORDERED: Nitroglycerin1 EACH TOP (02:36)
[2022-01-05] MEDS ORDERED: MECL12.5 PO (02:43)
[2022-01-05] MEDS ORDERED: HYDR1TAB94 PO (02:45)
[2022-01-08] MEDS ORDERED: DOXY100 PO (12:30)
[2022-01-08] MEDS ORDERED: TAMS.4ER PO (12:34)
[2022-01-08] MEDS ORDERED: VISBIOME 112.51 EACH PO (12:35)
== END 2021-07-28 10:26 | disposition home or self-care (01) ==
LOC: ER 07:50
DX: M62.838 Other muscle spasm (principal); M54.9 Dorsalgia, unspecified; I10 Essential (primary) hypertension; M79.651 Pain in right thigh; E11.9 Type 2 diabetes mellitus without complications; I25.10 Atherosclerotic heart disease of native coronary artery without angina pectoris; Z79.899 Other long term (current) drug therapy; Z79.84 Long term (current) use of oral hypoglycemic drugs; Z98.1 Arthrodesis status
CPT/HCPCS: 93971; 96372; 99283-25; A9270; J1885

== ENCOUNTER 2021-07-29 23:01 | Emergency (ER) | payer MEDICARE, OTHER ==
[~2021-07-29] VITALS: Ht 180.3 cm; Wt 104.3 kg
[~2021-07-29 23:01] MED LIST changes: +DIAZ2 PO; -METFORMIN HCL500 M3 PO
[2021-07-30] MEDS ORDERED: SITA100T2 PO (00:35)
[2021-07-30] MEDS ORDERED: Lisinopril2.5 MG PO (00:35)
[2021-07-30 02:30] LABS: Source, Urine Clean Catch
[2021-07-30 02:32] LABS: Bilirubin, Urine Neg (Neg); Blood, Urine 1+ (Neg); Glucose Qualitative, Urine Neg (Neg); Ketones, Urine Neg (Neg); Leukocyte Esterase, Urine Neg (Neg); Nitrite, Urine Neg (Neg); Protein, Urine 2+ (Neg); Urobilinogen, Urine NORM (Normal)
[2021-07-30 02:42] LABS: Amorphous Heavy (0-Heavy); Appearance, Urine Hazy (Clear); Bacteria Rare /hpf; Color, Urine Yellow (P-Yellow); Red Blood Cells, Urine 0-2 /hpf (0-2); Squamous Epithelial Cells Not Seen /hpf (Few); White Blood Cells, Urine Not Seen /hpf (0-5)
[2021-07-30 11:58] LABS: BASOPHILS ABSOLUTE AUTO 0.01 K/mm3 (0.00-0.23); BASOPHILS PERCENT AUTO 0 % (0-2); EOSINOPHILS PERCENT AUTO 0 % (0-6); Hemoglobin 9.6 g/dL (13.5-17.5); IMMATURE GRAN ABSOLUTE AUTO 0.08 K/mm3 (0.00-0.10); IMMATURE GRAN PERCENT AUTO 1 % (0-1); LYMPHOCYTES PERCENT AUTO 5 % (21-46); MONOCYTES ABSOLUTE AUTO 0.44 K/mm3 (0.16-1.47); MONOCYTES PERCENT AUTO 4 % (4-13); Mean Corpuscular HGB 24.4 pg (26.0-34.0); Mean Corpuscular Volume 79 fL (80-100); Mean Platelet Volume 10.5 fL (9.1-12.4); NEUTROPHILS ABSOLUTE AUTO 10.17 K/mm3 (1.96-9.15); NEUTROPHILS PERCENT AUTO 91 % (41-73); Platelet Count 370 K/mm3 (150-400); RDW Standard Deviation 57.7 fL (35.1-46.3); Red Blood Cell Count 3.93 M/mm3 (4.30-5.90)
[2021-07-30 12:00] LABS: Influenza A, PCR NEGATIVE (NEGATIVE); Influenza B, PCR NEGATIVE (NEGATIVE); Resp Syncytial Virus, PCR NEGATIVE (NEGATIVE); SARS-Cov-2 (COVID-19) PCR, MMC NEGATIVE (NEGATIVE)
[2021-07-30 12:15] LABS: Alanine Aminotransfer (ALT/SGP 65 U/L (12-78); Albumin, Blood 2.5 g/dL (3.4-5.0); Albumin/Globulin Ratio 0.5 (0.8-1.8); Alk Phos 166 U/L (50-136); Anion Gap 10 mmol/L (6-16); Aspartate Aminotrans (AST/SGOT 44 U/L (12-37); Bilirubin, Total 0.5 mg/dL (0.1-1.0); Blood Urea Nitrogen 33 mg/dL (8-24); CO2, Blood 24 mmol/L (21-32); Calcium, Blood 9.5 mg/dL (8.5-10.1); Chloride, Blood 96 mmol/L (98-108); Creatinine, Blood 1.32 mg/dL (0.60-1.20); Globulin, Blood 4.9 g/dL (2.2-4.0); Glomerular Filtration Rate 53 (60-); Glucose, Blood 273 mg/dL (70-99); Potassium, Blood 4.8 mmol/L (3.5-5.5); Sodium, Blood 130 mmol/L (136-145); Total Protein, Blood 7.4 g/dL (6.4-8.2)
[2021-07-30 12:31] LABS: C-REACTIVE PROTEIN, EXT RANGE >19.000 mg/dL (0.000-0.300)
== END 2021-07-30 15:36 ==
LOC: ER 23:01
PROVIDERS: Emergency Medicine
DX: G89.29 Other chronic pain (principal); M54.50 Low back pain, unspecified; I10 Essential (primary) hypertension; E11.9 Type 2 diabetes mellitus without complications; I25.10 Atherosclerotic heart disease of native coronary artery without angina pectoris; Z98.1 Arthrodesis status; Z79.899 Other long term (current) drug therapy
CPT/HCPCS: 0241U; 51701; 72100; 72148; 80053; 81001; 85025; 85651; 86140; 96374; 96375; 99285; A9270; J1100; J1170; J1885; J2405

== ENCOUNTER 2021-08-02 15:47 | Emergency (ER) | payer MEDICARE, OTHER ==
[~2021-08-02] VITALS: Ht 180.3 cm; Wt 72.6 kg
[2021-08-02 17:02] LABS: BASOPHILS ABSOLUTE AUTO 0.05 K/mm3 (0.00-0.23); BASOPHILS PERCENT AUTO 0 % (0-2); EOSINOPHILS ABSOLUTE AUTO 0.01 K/mm3 (0.00-0.68); EOSINOPHILS PERCENT AUTO 0 % (0-6); Hematocrit 28.6 % (37.0-53.0); Hemoglobin 9.1 g/dL (13.5-17.5); IMMATURE GRAN ABSOLUTE AUTO 0.34 K/mm3 (0.00-0.10); IMMATURE GRAN PERCENT AUTO 1 % (0-1); LYMPHOCYTES ABSOLUTE AUTO 0.68 K/mm3 (0.84-5.20); LYMPHOCYTES PERCENT AUTO 2 % (21-46); MONOCYTES ABSOLUTE AUTO 1.77 K/mm3 (0.16-1.47); MONOCYTES PERCENT AUTO 6 % (4-13); Mean Corpuscular HGB 24.9 pg (26.0-34.0); Mean Corpuscular HGB Conc 31.8 g/dL (31.5-36.5); Mean Corpuscular Volume 78 fL (80-100); Mean Platelet Volume 10.5 fL (9.1-12.4); NEUTROPHILS PERCENT AUTO 90 % (41-73); Platelet Count 586 K/mm3 (150-400); RDW Coefficient Variation 20.5 % (11.7-14.2); RDW Standard Deviation 58.7 fL (35.1-46.3); Red Blood Cell Count 3.66 M/mm3 (4.30-5.90); White Blood Cell Count 29.15 K/mm3 (4.00-11.30)
[2021-08-02 17:10] LABS: Albumin, Blood 2.2 g/dL (3.4-5.0); Albumin/Globulin Ratio 0.5 (0.8-1.8); Bilirubin, Total 0.8 mg/dL (0.1-1.0); Bun/Creatinine Ratio 32.3 (12.0-20.0); Calcium, Blood 9.4 mg/dL (8.5-10.1); Creatinine, Blood 1.55 mg/dL (0.60-1.20); Globulin, Blood 4.7 g/dL (2.2-4.0); Potassium, Blood 5.2 mmol/L (3.5-5.5); Total Protein, Blood 6.9 g/dL (6.4-8.2)
[2021-08-02 19:28] LABS: Vancomycin, Random <0.8 ug/mL
[2021-08-02 22:59] LABS: Source, Urine Clean Catch
[2021-08-02 23:01] LABS: Blood, Urine 3+ (Neg); Glucose Qualitative, Urine Neg (Neg); Ketones, Urine Neg (Neg); Leukocyte Esterase, Urine 1+ (Neg); Nitrite, Urine Neg (Neg); Protein, Urine 2+ (Neg); Urobilinogen, Urine 1+ (Normal)
[2021-08-02 23:17] LABS: Appearance, Urine Cloudy (Clear); Bilirubin, Urine 1+ (Neg); Color, Urine Yellow (P-Yellow)
[2021-08-02 23:21] LABS: Amorphous Heavy (0-Heavy); Bacteria Few /hpf; Red Blood Cells, Urine 0-2 /hpf (0-2); Squamous Epithelial Cells Rare /hpf (Few)
== END 2021-08-02 23:15 | disposition short-term general hospital (02) ==
LOC: ER 15:47
PROVIDERS: Emergency Medicine; Student in an Organized Health Care Education/Training Program
DX: L03.312 Cellulitis of back [any part except buttock and flank] (principal); Z79.899 Other long term (current) drug therapy; Z79.84 Long term (current) use of oral hypoglycemic drugs; I10 Essential (primary) hypertension; E11.9 Type 2 diabetes mellitus without complications; M19.90 Unspecified osteoarthritis, unspecified site; I25.10 Atherosclerotic heart disease of native coronary artery without angina pectoris
CPT/HCPCS: 36415; 51702; 51798; 71046; 72132; 80053; 80202; 81001; 83605; 85025; 87040; 87077; 87086; 87147; 87186; 93005; 93010; 96365; 96366; 96367; 99285-25; J2543; J3370; J7030; J7050; Q9967

== ENCOUNTER 2021-11-05 10:42 | Emergency (ER) | payer MEDICARE, OTHER ==
[~2021-11-05] VITALS: Ht 180.3 cm; Wt 99.8 kg
[~2021-11-05 10:42] MED LIST changes: +METFORMIN HCL500 M3 PO
[2021-11-06] MEDS ORDERED: GABA100 PO (23:35)
== END 2021-11-05 14:30 | disposition home or self-care (01) ==
LOC: ER 10:42
DX: M51.16 Intervertebral disc disorders with radiculopathy, lumbar region (principal); M48.061 Spinal stenosis, lumbar region without neurogenic claudication; Z98.1 Arthrodesis status; I10 Essential (primary) hypertension; E11.9 Type 2 diabetes mellitus without complications; I25.10 Atherosclerotic heart disease of native coronary artery without angina pectoris; Z95.1 Presence of aortocoronary bypass graft; Z79.899 Other long term (current) drug therapy; Z79.84 Long term (current) use of oral hypoglycemic drugs; Z79.01 Long term (current) use of anticoagulants
CPT/HCPCS: 72131; J1170; J1885

== ENCOUNTER 2021-11-06 10:56 | Inpatient (IN) | payer MEDICARE, OTHER ==
[~2021-11-06] VITALS: Ht 180.3 cm; Wt 98.0 kg
[2021-11-06 11:19] LABS: BASOPHILS ABSOLUTE AUTO 0.05 K/mm3 (0.00-0.23); BASOPHILS PERCENT AUTO 0 % (0-2); EOSINOPHILS PERCENT AUTO 0 % (0-6); Hematocrit 29.2 % (37.0-53.0); Hemoglobin 9.6 g/dL (13.5-17.5); IMMATURE GRAN ABSOLUTE AUTO 0.29 K/mm3 (0.00-0.10); IMMATURE GRAN PERCENT AUTO 1 % (0-1); LYMPHOCYTES PERCENT AUTO 2 % (21-46); MONOCYTES ABSOLUTE AUTO 1.15 K/mm3 (0.16-1.47); MONOCYTES PERCENT AUTO 5 % (4-13); Mean Corpuscular HGB 27.2 pg (26.0-34.0); Mean Corpuscular HGB Conc 32.9 g/dL (31.5-36.5); Mean Corpuscular Volume 83 fL (80-100); Mean Platelet Volume 10.6 fL (9.1-12.4); NEUTROPHILS ABSOLUTE AUTO 19.35 K/mm3 (1.96-9.15); NEUTROPHILS PERCENT AUTO 91 % (41-73); Platelet Count 192 K/mm3 (150-400); RDW Coefficient Variation 15.6 % (11.7-14.2); RDW Standard Deviation 46.9 fL (35.1-46.3); Red Blood Cell Count 3.53 M/mm3 (4.30-5.90); White Blood Cell Count 21.24 K/mm3 (4.00-11.30)
[2021-11-06 11:41] LABS: Albumin, Blood 2.8 g/dL (3.4-5.0); Albumin/Globulin Ratio 0.7 (0.8-1.8); Bun/Creatinine Ratio 21.5 (12.0-20.0); Calcium, Blood 9.5 mg/dL (8.5-10.1); Creatinine, Blood 2.42 mg/dL (0.60-1.20); Potassium, Blood 4.2 mmol/L (3.5-5.5); Total Protein, Blood 6.8 g/dL (6.4-8.2)
[2021-11-06 12:00] LABS: Source, Urine Voided
[2021-11-06 12:03] LABS: Appearance, Urine Hazy (Clear); Bilirubin, Urine Neg (Neg); Blood, Urine 3+ (Neg); Color, Urine Amber (P-Yellow); Glucose Qualitative, Urine Neg (Neg); Ketones, Urine Neg (Neg); Leukocyte Esterase, Urine Neg (Neg); Nitrite, Urine Neg (Neg); Protein, Urine 2+ (Neg); Urobilinogen, Urine NORM (Normal)
[2021-11-06 13:01] LABS: Amorphous Light (0-Heavy); Bacteria Many /hpf; Squamous Epithelial Cells Rare /hpf (Few); White Blood Cells, Urine 0-2 /hpf (0-5)
[2021-11-06 13:02] LABS: Mucus Light (0-Heavy)
[2021-11-06 13:03] LABS: Hyaline Casts 0-2 /lpf (0-2)
[2021-11-06 19:45] LABS: Calcium, Ionized (POC) 1.04 mmol/L (1.10-1.46); Chloride (POC) 91 mmol/L (98-108); Creatinine (POC) 2.8 mg/dL (0.8-1.3); Glucose (ISTAT POC) 127 mg/dL (70-99); Hemoglobin (POC) 9.9 g/dL (13.5-17.5); Potassium (POC) 4.4 mmol/L (3.5-5.5); Sodium (POC) 124 mmol/L (135-148); Total CO2 (POC) 22 mmol/L (21-32)
[2021-11-06 20:29] LABS: Influenza A, PCR NEGATIVE (NEGATIVE); Influenza B, PCR NEGATIVE (NEGATIVE); Resp Syncytial Virus, PCR NEGATIVE (NEGATIVE); SARS-Cov-2 (COVID-19) PCR, MMC NEGATIVE (NEGATIVE)
[2021-11-06] MEDS ORDERED: GABA100 PO (23:35)
[2021-11-07 01:21] LABS: Hematocrit 25.6 % (37.0-53.0); Hemoglobin 8.4 g/dL (13.5-17.5); Mean Corpuscular HGB 27.2 pg (26.0-34.0); Mean Corpuscular HGB Conc 32.8 g/dL (31.5-36.5); Mean Corpuscular Volume 83 fL (80-100); Mean Platelet Volume 9.7 fL (9.1-12.4); Platelet Count 150 K/mm3 (150-400); RDW Coefficient Variation 15.8 % (11.7-14.2); RDW Standard Deviation 47.8 fL (35.1-46.3); Red Blood Cell Count 3.09 M/mm3 (4.30-5.90); White Blood Cell Count 17.53 K/mm3 (4.00-11.30)
[2021-11-07 01:39] LABS: Albumin, Blood 2.4 g/dL (3.4-5.0); Albumin/Globulin Ratio 0.7 (0.8-1.8); Bilirubin, Total 0.7 mg/dL (0.1-1.0); Bun/Creatinine Ratio 22.8 (12.0-20.0); Calcium, Blood 8.1 mg/dL (8.5-10.1); Creatinine, Blood 2.46 mg/dL (0.60-1.20); Globulin, Blood 3.5 g/dL (2.2-4.0); Total Protein, Blood 5.9 g/dL (6.4-8.2)
[2021-11-07 01:45] LABS: BAND PERCENT MAN 16 % (0-8); BASOPHILS PERCENT MAN 0 % (0-2); EOSINOPHILS PERCENT MAN 0 % (0-6); LYMPHOCYTES ABSOLUTE MAN 0.17 K/mm3 (0.84-5.20); LYMPHOCYTES PERCENT MAN 1 % (21-46); METAMYELOCYTE ABSOLUTE MAN 0.17 K/mm3 (0.00-0.00); METAMYELOCYTE PERCENT MAN 1 % (0-0); MONOCYTES ABSOLUTE MAN 0.52 K/mm3 (0.16-1.47); MONOCYTES PERCENT MAN 3 % (4-13); NEUTROPHILS ABSOLUTE MAN 16.65 K/mm3 (1.96-9.15); SEG NEUTROPHILS PERCENT MAN 79 % (41-73); TOTAL CELLS COUNTED 100
[2021-11-07 01:48] LABS: Percent Saturation 2.5 % (20.0-50.0); Thyroid Stimulating Hormone 0.951 uIU/mL (0.360-4.800)
--- NOTE | 2021-11-07 04:33 | NUR ---
TELE UPDATE TELE MEAT STOCK CLERK NOTIFIED THIS RN OF POSSIBLE ST ELEVATION. EKG COMPLETED, A. FIB WITH Joshua MCDERMOTT. PT DENIES CHEST PAIN/PRESSURE. GAS ENGINE OPERATOR COMPRESSORS PROVIDER NOTIFIED, NO NEW ORDERS AT THIS TIME.
--- NOTE | 2021-11-07 06:10 | NUR ---
SHIFT SUMMARY ED ADMIT THIS SHIFT AT APPROX 0005. A/O 2-3, WITHDRAWN/FLAT AFFECT. COOPERATIVE WITH CARE, ABLE TO FOLLOW SIMPLE DIRECTIONS. LR RUNNING AT 150 ML/HR. TELE AFIB IN THE 80S. INCONT, ATTENDS IN PLACE. BP CONTINUES TO BE SOFT. BED IN LOWEST POSITION WITH CALL LIGHT IN REACH. WILL CONTINUE TO MONITOR AND REPORT TO ONCOMING RN.
--- NOTE | 2021-11-07 18:36 | NUR ---
SHIFT SUMMARY NO ACUTE EVENTS. PTN PLEASANT, COOPERATIVE, SOME CONFUSION. PTN ADVANCED TO ADA DIET AND BLOOD SUGARS ELEVATED SLIGHTLY AT MEALTIMES. PTN INCONTINENT. HAS HAD NO COMPLAINTS OF PAIN THIS SHIFT.
--- NOTE | 2021-11-08 04:38 | NUR ---
A&OX4. CONFUSION IN AM NOTED. V/S WNL. IV TO L) & R) F/A. NITRO PATCH REMOVED AND RE-APPLIED THIS AM ORDERED. BEDREST. 2-ASSIST. INCONTINENT OF URINE. CONDOM CATH APPLIED. MEPILEX DRESSING TO BOTTOM C/D/I. ADA DIET. ACUCHECKS AC&HS; HS: 249. RESIDUAL R) SIDED WEAKNESS (LEG). NO BM THIS SHIFT. TELE: AFIB @ HR OF 97BPM. WILL CONTINUE TO MONITOR.
[2021-11-08 05:04] LABS: Hematocrit 25.6 % (37.0-53.0); Hemoglobin 8.7 g/dL (13.5-17.5); Mean Corpuscular HGB 27.4 pg (26.0-34.0); Mean Corpuscular Volume 81 fL (80-100); Mean Platelet Volume 10.9 fL (9.1-12.4); Platelet Count 155 K/mm3 (150-400); RDW Coefficient Variation 15.5 % (11.7-14.2); RDW Standard Deviation 45.6 fL (35.1-46.3); Red Blood Cell Count 3.18 M/mm3 (4.30-5.90); White Blood Cell Count 16.02 K/mm3 (4.00-11.30)
[2021-11-08 05:26] LABS: Bun/Creatinine Ratio 31.3 (12.0-20.0); Calcium, Blood 8.9 mg/dL (8.5-10.1); Creatinine, Blood 1.98 mg/dL (0.60-1.20); Potassium, Blood 4.1 mmol/L (3.5-5.5)
--- NOTE | 2021-11-08 14:11 | NUR ---
Pt resting in bed and is A&O. Pt reports tolerable 3/10 pain in his back. Pt reports mild and manageable nausea. Pt also reports mild anxiety and depression. Pt reports current regimen is managing his depression. Pt denies dyspnea at this time. Offered active listening as Pt reports inability to do things he once did. Spouse at bedside reports noticing a decline in Pt's health and function after receiving back surgery. Pt and spouse report Pt has been doing out patient physical therapy 3 times a week and was seeing progress. Pt's appetite has been declining over the last 2 months. Continued active listening and validated concerns. Pt and spouse report having 2 adult children, one living local and one living out of state. Child that lives local does not offer any support at this time. Engaged in therapeutic discussion regarding advanced care planning and wishes for code status. Educated on life sustaining treatments including risk factors and implications of CPR. Discussed Advanced Directives with spouse reporting having completed with [facility]. Requested at some point to bring copy to hospital for Pt's records. Educated on disease process including trajectory of disease. Discussed the importance of planning for the future and having routine conversations with PCP as disease progresses. Pt and spouse express appreciation and report no concerns at this time. Palliative Care will remain available.
--- NOTE | 2021-11-08 16:22 | NUR ---
Echocardiogram performed.
--- NOTE | 2021-11-08 18:29 | NUR ---
SHIFT SUMMARY NO ACUTE EVENTS. PTN PLEASANT, COOPERATIVE. PRESENT MUCH OF DAY. PTN INCONTINENT OF BOWEL AND BLADDER. PTN UP TO SHOWER WITH WALKER AND ASSIST. PTN COCCYX COVERED WITH FOAM DRESSING FOR PROTECTION. PTN TURNED Q2 HRS. CONTINUE TO MONITOR.
[2021-11-08 21:37] LABS: Vancomycin, Trough 21.4 ug/mL (5.0-10.0)
--- NOTE | 2021-11-09 04:02 | NUR ---
A&OX4. V/S WNL. BSC, 2-ASSIST. INCONTINENT OF URINE; CONDOM CATH IN SITU & DRAINING CLEAR YELLOW URINE. NO BM THIS SHIFT. TELE:AFIB @HR OF 83 BPM. IV'S TO L) & R) AC. ADA DIET. GABRIELE AC & HS. HS BS: 238. MEPILEX TO COCYX C/D/I. CRITICAL LAB: [facility] 21.4. PRN TYLENOL GIVEN FOR BACK PAIN. WILL CONTINUE TO MONITOR.
--- NOTE | 2021-11-09 09:00 | NUR ---
Pt laying in bed with eyes closed, wakes easily, a/ox3, pleasant and cooperative with care, follows commands well, denies pain, reports a good night and that he feels pretty good this am, lungs are clear t/o, a bit dim in bases, resp even and unlabored, no cough noted, hrirr, no edema noted, ppp faint, cap refill <3sec, vs stable, afebrile, iv site to l and r ac, sites are clear and patent, btx4, abd flat soft, nontender, incont of urine, skin c/w/d has a very small slit on coccyx mepilex in place, maew, very weak, he reports his right leg is weaker than left, sarah, call light in reach.
--- NOTE | 2021-11-09 18:04 | NUR ---
pt has been up for meals, no acute changes this shift, no complaints or needs eating dinner at this time. call light in reach.
--- NOTE | 2021-11-10 04:09 | NUR ---
A&0X4. V/S WNL. ADA DIET. ACUCHECKS AC&HS. HS BS: 216. 2-ASSIST, WITH FWW&GB. INCONTINENT OF URINE. CONDOM CATH IN SITU AND DRAINING CLEAR YELLOW URINE. NO BM THIS SHIFT. GUAIC PENDING. PICC LINE PENDING FOR 4-6 WEEKS A/B THERAPY. IV TO L) & R) FA'S. TELE: AFIB @HR OF 84 BPM. WILL CONTINUE TO MONITOR.
--- NOTE | 2021-11-10 08:07 | NUR ---
pt laying in bed, states he's uncomfortable in the bed, feels like he's sitting in a hole, a/ox3, got him up to the chair with two person gait belt, he is very stiff this am, medicated for pain, am care done, he is ready for breakfast, lungs are clear and a bit dim t/o, resp even and unlabored, no cough noted, hrirr, tele in place running afib per monitor, see strip, no edema noted, ppp faint, cap reifll <3 sec, v.s. stable, iv sites are clear and patent, infusing ns at 75mls/hr, btx4, abd flat soft nontender, incont of urine and stool, briefs in place, skin has a slit distal to coccyx, mepilex in place, maew, legs are very stiff this am was only able to stand and pivot to chair, sarah, call light in reach.
[2021-11-10 08:23] LABS: BASOPHILS ABSOLUTE AUTO 0.02 K/mm3 (0.00-0.23); BASOPHILS PERCENT AUTO 0 % (0-2); EOSINOPHILS ABSOLUTE AUTO 0.14 K/mm3 (0.00-0.68); EOSINOPHILS PERCENT AUTO 1 % (0-6); Hematocrit 30.9 % (37.0-53.0); Hemoglobin 9.9 g/dL (13.5-17.5); IMMATURE GRAN ABSOLUTE AUTO 0.16 K/mm3 (0.00-0.10); IMMATURE GRAN PERCENT AUTO 1 % (0-1); LYMPHOCYTES ABSOLUTE AUTO 0.75 K/mm3 (0.84-5.20); LYMPHOCYTES PERCENT AUTO 5 % (21-46); MONOCYTES PERCENT AUTO 4 % (4-13); Mean Corpuscular HGB 26.6 pg (26.0-34.0); Mean Corpuscular Volume 83 fL (80-100); Mean Platelet Volume 10.2 fL (9.1-12.4); NEUTROPHILS ABSOLUTE AUTO 14.37 K/mm3 (1.96-9.15); NEUTROPHILS PERCENT AUTO 89 % (41-73); Platelet Count 210 K/mm3 (150-400); RDW Coefficient Variation 15.7 % (11.7-14.2); RDW Standard Deviation 47.3 fL (35.1-46.3); Red Blood Cell Count 3.72 M/mm3 (4.30-5.90); White Blood Cell Count 16.14 K/mm3 (4.00-11.30)
--- NOTE | 2021-11-10 08:41 | NUR ---
assited pt back to bed, he reports he isn't feeling good and has no appetite. will bring him an ensure. call light in reach.
--- NOTE | 2021-11-10 18:15 | NUR ---
pt up to chair for meals, he understands he will have a meir in the am and no food after mid, no acute changes this shift, call light in reach.
--- NOTE | 2021-11-11 05:33 | NUR ---
SHIFT SUMMARY: A/OX4, 2 PERSON ASSIST TURNING AND REPOSITIONING IN BED. PT REMAINS NPO FOR PENDING ALEX THIS MORNING. NORCO ADMINSTERED X1 FOR BACK PAIN, PT REPORTED ADEQUATE PAIN RELIEF POST ADMINISTRATION. PT CONTINUES TO CALL APPROPRIATELY. BED ALARM REMAINS ACTIVATED, BED IN LOW POSITION, CALL RODRIGUEZ AND BELONGINGS IN REACH.
[2021-11-11 05:44] LABS: BASOPHILS ABSOLUTE AUTO 0.01 K/mm3 (0.00-0.23); BASOPHILS PERCENT AUTO 0 % (0-2); EOSINOPHILS ABSOLUTE AUTO 0.27 K/mm3 (0.00-0.68); EOSINOPHILS PERCENT AUTO 2 % (0-6); Hematocrit 27.1 % (37.0-53.0); Hemoglobin 8.8 g/dL (13.5-17.5); IMMATURE GRAN ABSOLUTE AUTO 0.17 K/mm3 (0.00-0.10); IMMATURE GRAN PERCENT AUTO 1 % (0-1); LYMPHOCYTES ABSOLUTE AUTO 0.85 K/mm3 (0.84-5.20); LYMPHOCYTES PERCENT AUTO 6 % (21-46); MONOCYTES ABSOLUTE AUTO 0.76 K/mm3 (0.16-1.47); MONOCYTES PERCENT AUTO 6 % (4-13); Mean Corpuscular HGB 27.1 pg (26.0-34.0); Mean Corpuscular HGB Conc 32.5 g/dL (31.5-36.5); Mean Corpuscular Volume 83 fL (80-100); Mean Platelet Volume 10.5 fL (9.1-12.4); NEUTROPHILS ABSOLUTE AUTO 11.19 K/mm3 (1.96-9.15); NEUTROPHILS PERCENT AUTO 85 % (41-73); Platelet Count 179 K/mm3 (150-400); RDW Coefficient Variation 15.9 % (11.7-14.2); RDW Standard Deviation 48.5 fL (35.1-46.3); Red Blood Cell Count 3.25 M/mm3 (4.30-5.90); White Blood Cell Count 13.25 K/mm3 (4.00-11.30)
[2021-11-11 06:14] LABS: Bun/Creatinine Ratio 29.1 (12.0-20.0); Calcium, Blood 8.7 mg/dL (8.5-10.1); Creatinine, Blood 1.75 mg/dL (0.60-1.20); Potassium, Blood 4.2 mmol/L (3.5-5.5)
--- NOTE | 2021-11-11 08:00 | NUR ---
pt laying in bed with eyes closed, wakes easily, states he had a better night, has been npo after mid pending ALEX this am, v.s. stable, no complaints or changes, clall light in reach.
--- NOTE | 2021-11-11 11:50 | NUR ---
PT REMAINS DROWSY, BUT EASILY ROUSABLE POST PROCEDURE. PT DENIES PAIN, PLACED ON CPAP PER REQUEST, VSS SEE EHR. REPORT GIVEN TO ARSENIO CESAR RN; ALL QUESTIONS ANSWERED.
--- NOTE | 2021-11-11 18:11 | NUR ---
Pt had a ALEX this am, tolerated it pretty well, was sleepy for a few hrs. v.s. remained stable, no acute changes this shift, call light in reach.
--- NOTE | 2021-11-12 03:33 | NUR ---
SHIFT SUMMARY: A/OX4, 2 PERSON ASSIST TURNING IN BED. PT REMAINS INCONTINENT OF BOWEL AND BLADDER. NORCO ADMINISTERED X1 TONIGHT FOR PAIN RELIEF DUE TO BACK PAIN. UNABLE TO COLLECT STOOL SAMPLE TONIGHT DUE TO NO BM. PT CONTINUES TO CALL APPROPRIATELY. BED ALARM REMAINS ACTIVATED, CALL RODRIGUEZ AND BELONGINGS IN REACH, BED IN LOW POSITION.
--- NOTE | 2021-11-12 07:47 | NUR ---
pt laying in bed with eyes closed, wakes easily, takes po meds without diff, pleasant and cooperative with care, lungs are clear t/o, on r/a, resp even and unlabored, no cough noted, hrirr, tele in place running afib, no edema noted, iv x2 infusing ns at 75mls/hr, btx4, abd flat soft nontender, incont of urine and stool, briefs in place, skin c/w/d, maew, sarah, call light in reach.
--- NOTE | 2021-11-12 18:04 | NUR ---
pt has had some neck and pain this am, gave him pain meds, heating pad and rolled towel, he reported that really helped. plan is for him to go to snf tomorrow. No further changes this shift. call light in reach.
--- NOTE | 2021-11-13 04:59 | NUR ---
SHIFT SUMMARY: A/OX4, 2 PERSON ASSIST TURNING. NORCO ADMINISTERED X1 TONIGHT WITH ADEQUATE PAIN RELIEF. NO ACUTE CHANGES THROUGHOUT THE NIGHT. PT CONTINUES TO CALL APPROPRIATELY. BED IN LOW POSITION, BED ALARM ACTIVATED, CALL RODRIGUEZ AND BELONGINGS IN REACH.
[2021-11-13 11:24] LABS: Influenza A, PCR NEGATIVE (NEGATIVE); Influenza B, PCR NEGATIVE (NEGATIVE); Resp Syncytial Virus, PCR NEGATIVE (NEGATIVE); SARS-Cov-2 (COVID-19) PCR, MMC NEGATIVE (NEGATIVE)
[2021-11-13] MEDS ORDERED: Acetaminophen325 M1 PO (12:06)
[2021-11-13] MEDS ORDERED: CEFAZOLIN2 GM/50 M3 IV (12:08)
[2021-11-13] MEDS ORDERED: FAMO20 PO (12:08)
[2021-11-13] MEDS ORDERED: HYDR1TAB94 PO (12:09)
[2021-11-13] MEDS ORDERED: INSULANI SC (12:10)
[2021-11-13] MEDS ORDERED: HUMULIN R100 UNIT/2 SC (12:12)
[2021-11-13] MEDS ORDERED: RANO500T PO (12:13)
[2021-11-13] MEDS ORDERED: Crestor40 MG PO (12:14)
[2021-11-13] MEDS ORDERED: VISBIOME 112.51 EACH PO (12:15)
== END 2021-11-13 16:03 | DRG 871 ==
LOC: ER 10:56 → MEDS 22:11
PROVIDERS: Emergency Medicine; Internal Medicine; Student in an Organized Health Care Education/Training Program; ADMIT Internal Medicine
DX: A41.02 Sepsis due to Methicillin resistant Staphylococcus aureus (principal); G92.8 Other toxic encephalopathy; N17.9 Acute kidney failure, unspecified; I48.20 Chronic atrial fibrillation, unspecified; A04.72 Enterocolitis due to Clostridium difficile, not specified as recurrent; E87.1 Hypo-osmolality and hyponatremia; I48.92 Unspecified atrial flutter; R65.20 Severe sepsis without septic shock; D64.9 Anemia, unspecified; Z20.822 Contact with and (suspected) exposure to COVID-19; M48.061 Spinal stenosis, lumbar region without neurogenic claudication; E78.5 Hyperlipidemia, unspecified; I25.10 Atherosclerotic heart disease of native coronary artery without angina pectoris; I12.9 Hypertensive chronic kidney disease with stage 1 through stage 4 chronic kidney disease, or unspecified chronic kidney disease; E11.22 Type 2 diabetes mellitus with diabetic chronic kidney disease; Z79.01 Long term (current) use of anticoagulants; Z95.2 Presence of prosthetic heart valve; Z95.1 Presence of aortocoronary bypass graft; Z98.890 Other specified postprocedural states; Z79.899 Other long term (current) drug therapy; E11.649 Type 2 diabetes mellitus with hypoglycemia without coma
CPT/HCPCS: 0241U; 36415; 51701; 70450; 71045; 72157; 72158; 74177; 80047; 80048; 80053; 80202; 81001; 82728; 82947; 83036; 83540; 83550; 83605; 83690; 84145; 84443; 84484; 85014; 85025; 85027; 85651; 87040; 87077; 87086; 87147; 87186; 93005; 93010; 93306; 93312; 93325; 96365-59; 96366-59; 96368; 96375-59; 97110; 97162; 97530; 99152; 99285-25; A9270; A9579; J0133; J0290; J0690; J0696; J1100; J1815; J2185; J2250; J2310; J3010; J3370; J7030; J7040; J7060; J7120; Q9967

== ENCOUNTER 2021-12-17 13:45 | Emergency (ER) | payer MEDICARE, OTHER ==
[~2021-12-17] VITALS: Ht 177.8 cm; Wt 103.9 kg
[~2021-12-17 13:45] MED LIST changes: +Acetaminophen325 M1 PO; +CEFAZOLIN2 GM/50 M3 IV; +GABA100 PO; +HUMULIN R100 UNIT/2 SC; +INSULANI SC; +VISBIOME 112.51 EACH PO
[2021-12-17 15:45] LABS: BASOPHILS ABSOLUTE AUTO 0.06 K/mm3 (0.00-0.23); BASOPHILS PERCENT AUTO 1 % (0-2); EOSINOPHILS ABSOLUTE AUTO 0.51 K/mm3 (0.00-0.68); EOSINOPHILS PERCENT AUTO 4 % (0-6); Hematocrit 25.8 % (37.0-53.0); Hemoglobin 8.2 g/dL (13.5-17.5); IMMATURE GRAN ABSOLUTE AUTO 0.04 K/mm3 (0.00-0.10); IMMATURE GRAN PERCENT AUTO 0 % (0-1); LYMPHOCYTES ABSOLUTE AUTO 1.39 K/mm3 (0.84-5.20); LYMPHOCYTES PERCENT AUTO 12 % (21-46); MONOCYTES ABSOLUTE AUTO 0.97 K/mm3 (0.16-1.47); MONOCYTES PERCENT AUTO 8 % (4-13); Mean Corpuscular HGB 26.9 pg (26.0-34.0); Mean Corpuscular HGB Conc 31.8 g/dL (31.5-36.5); Mean Corpuscular Volume 85 fL (80-100); Mean Platelet Volume 10.5 fL (9.1-12.4); NEUTROPHILS ABSOLUTE AUTO 8.56 K/mm3 (1.96-9.15); NEUTROPHILS PERCENT AUTO 74 % (41-73); Platelet Count 245 K/mm3 (150-400); RDW Coefficient Variation 15.5 % (11.7-14.2); RDW Standard Deviation 47.1 fL (35.1-46.3); Red Blood Cell Count 3.05 M/mm3 (4.30-5.90); White Blood Cell Count 11.53 K/mm3 (4.00-11.30)
[2021-12-17 15:56] LABS: Albumin, Blood 2.5 g/dL (3.4-5.0); Albumin/Globulin Ratio 0.7 (0.8-1.8); Bilirubin, Total 0.3 mg/dL (0.1-1.0); Bun/Creatinine Ratio 13.5 (12.0-20.0); C-REACTIVE PROTEIN, EXT RANGE 2.26 mg/dL (0.000-0.300); Calcium, Blood 9.1 mg/dL (8.5-10.1); Creatinine, Blood 1.04 mg/dL (0.60-1.20); Globulin, Blood 3.6 g/dL (2.2-4.0); Potassium, Blood 3.7 mmol/L (3.5-5.5); Total Protein, Blood 6.1 g/dL (6.4-8.2)
== END 2021-12-17 19:53 | disposition home or self-care (01) ==
LOC: ER 13:45
PROVIDERS: Student in an Organized Health Care Education/Training Program
DX: M16.11 Unilateral primary osteoarthritis, right hip (principal); I10 Essential (primary) hypertension; E11.9 Type 2 diabetes mellitus without complications; I25.10 Atherosclerotic heart disease of native coronary artery without angina pectoris; Z88.8 Allergy status to other drugs, medicaments and biological substances; Z79.899 Other long term (current) drug therapy; Z79.4 Long term (current) use of insulin; Z79.01 Long term (current) use of anticoagulants; Z95.1 Presence of aortocoronary bypass graft
CPT/HCPCS: 72192; 80053; 85025; 85651; 86140; J0696; J3370; J7050

== ENCOUNTER 2021-12-28 09:37 | Emergency (ER) | payer MEDICARE, OTHER ==
[~2021-12-28] VITALS: Ht 177.8 cm; Wt 90.7 kg
[2021-12-28] MEDS ORDERED: ONDA4ODT MM (10:02)
[2021-12-28] MEDS ORDERED: SULFAMETHOXAZO1 EAC1 PO (10:03)
[2021-12-28] MEDS ORDERED: Nitro-Dur1 EACH TOP (10:15)
[2021-12-28] MEDS ORDERED: METF500C PO (10:16)
[2021-12-28 10:52] LABS: BASOPHILS PERCENT AUTO 1 % (0-2); EOSINOPHILS ABSOLUTE AUTO 0.13 K/mm3 (0.00-0.68); EOSINOPHILS PERCENT AUTO 1 % (0-6); Hematocrit 26.7 % (37.0-53.0); Hemoglobin 8.9 g/dL (13.5-17.5); IMMATURE GRAN ABSOLUTE AUTO 0.03 K/mm3 (0.00-0.10); IMMATURE GRAN PERCENT AUTO 0 % (0-1); LYMPHOCYTES ABSOLUTE AUTO 1.28 K/mm3 (0.84-5.20); LYMPHOCYTES PERCENT AUTO 13 % (21-46); MONOCYTES ABSOLUTE AUTO 0.84 K/mm3 (0.16-1.47); MONOCYTES PERCENT AUTO 8 % (4-13); Mean Corpuscular HGB 27.4 pg (26.0-34.0); Mean Corpuscular HGB Conc 33.3 g/dL (31.5-36.5); Mean Corpuscular Volume 82 fL (80-100); Mean Platelet Volume 9.8 fL (9.1-12.4); NEUTROPHILS ABSOLUTE AUTO 7.86 K/mm3 (1.96-9.15); NEUTROPHILS PERCENT AUTO 77 % (41-73); Platelet Count 406 K/mm3 (150-400); RDW Coefficient Variation 14.7 % (11.7-14.2); RDW Standard Deviation 44.1 fL (35.1-46.3); Red Blood Cell Count 3.25 M/mm3 (4.30-5.90); White Blood Cell Count 10.24 K/mm3 (4.00-11.30)
[2021-12-28 11:21] LABS: Albumin/Globulin Ratio 0.7 (0.8-1.8); Bilirubin, Total 0.4 mg/dL (0.1-1.0); Bun/Creatinine Ratio 22.3 (12.0-20.0); Calcium, Blood 9.5 mg/dL (8.5-10.1); Creatinine, Blood 1.79 mg/dL (0.60-1.20); Globulin, Blood 4.2 g/dL (2.2-4.0); Potassium, Blood 5.9 mmol/L (3.5-5.5); Total Protein, Blood 7.2 g/dL (6.4-8.2)
[2021-12-28] MEDS ORDERED: FERSU300 PO (16:07)
[2021-12-28] MEDS ORDERED: POTCHL20ER PO (16:07)
[2021-12-28] MEDS ORDERED: FURO40 PO (16:08)
[2021-12-28] MEDS ORDERED: RANO500T PO (16:09)
== END 2021-12-28 18:37 | disposition home or self-care (01) ==
LOC: ER 09:37
PROVIDERS: Emergency Medicine
DX: R53.1 Weakness (principal); R53.81 Other malaise; A04.72 Enterocolitis due to Clostridium difficile, not specified as recurrent; N28.9 Disorder of kidney and ureter, unspecified; E88.9 Metabolic disorder, unspecified; I10 Essential (primary) hypertension; E11.9 Type 2 diabetes mellitus without complications; I25.10 Atherosclerotic heart disease of native coronary artery without angina pectoris; Z88.8 Allergy status to other drugs, medicaments and biological substances; Z79.899 Other long term (current) drug therapy; Z79.4 Long term (current) use of insulin; Z79.01 Long term (current) use of anticoagulants; Z95.1 Presence of aortocoronary bypass graft
CPT/HCPCS: 36415; 71045; 80053; 85025; J7030

== ENCOUNTER → 2022-01-23 | Outpatient (CLI) | payer MEDICARE, OTHER ==
[~2022-01-23] MED LIST changes: +ATOR80 PO; +DOXY100 PO; +MECL12.5 PO; +METF500C PO; +MIRT15 PO; +Nitro-Dur1 EACH TOP; +Nitroglycerin1 EACH TOP; +ONDA4ODT MM; +POTCHL20ER PO; +PRAM.125 PO; +SULFAMETHOXAZO1 EAC1 PO; +TAMS.4ER PO
[2022-01-23 19:01] LABS: Bun/Creatinine Ratio 31.7 (12.0-20.0); Calcium, Blood 10.1 mg/dL (8.5-10.1); Creatinine, Blood 1.23 mg/dL (0.60-1.20); Potassium, Blood 4.9 mmol/L (3.5-5.5)
== END | disposition home or self-care (01) ==
LOC: LAB SHORT 14:35 → LAB 14:35
PROVIDERS: Hospitalist
DX: N17.1 Acute kidney failure with acute cortical necrosis (principal); E11.42 Type 2 diabetes mellitus with diabetic polyneuropathy
CPT/HCPCS: 80048; 83036

== ENCOUNTER → 2024-01-08 | Outpatient (CLI) | payer MEDICARE, BC ==
[2024-01-09 19:32] LABS: BASOPHILS ABSOLUTE AUTO 0.08 K/mm3 (0.00-0.23); BASOPHILS PERCENT AUTO 1 % (0-2); EOSINOPHILS ABSOLUTE AUTO 0.17 K/mm3 (0.00-0.68); EOSINOPHILS PERCENT AUTO 2 % (0-6); Hematocrit 35.7 % (37.0-53.0); Hemoglobin 10.9 g/dL (13.5-17.5); IMMATURE GRAN ABSOLUTE AUTO 0.03 K/mm3 (0.00-0.10); IMMATURE GRAN PERCENT AUTO 0 % (0-1); LYMPHOCYTES ABSOLUTE AUTO 1.26 K/mm3 (0.84-5.20); LYMPHOCYTES PERCENT AUTO 17 % (21-46); MONOCYTES PERCENT AUTO 7 % (4-13); Mean Corpuscular HGB 30.1 pg (26.0-34.0); Mean Corpuscular HGB Conc 30.5 g/dL (31.5-36.5); Mean Corpuscular Volume 99 fL (80-100); Mean Platelet Volume 10.8 fL (9.1-12.4); NEUTROPHILS ABSOLUTE AUTO 5.21 K/mm3 (1.96-9.15); NEUTROPHILS PERCENT AUTO 72 % (41-73); Platelet Count 234 K/mm3 (150-400); RDW Coefficient Variation 13.9 % (11.7-14.2); RDW Standard Deviation 50.2 fL (35.1-46.3); Red Blood Cell Count 3.62 M/mm3 (4.30-5.90); White Blood Cell Count 7.25 K/mm3 (4.00-11.30)
== END ==
LOC: LAB SHORT 18:26 → LAB 18:26
PROVIDERS: Internal Medicine Hematology & Oncology
DX: D50.0 Iron deficiency anemia secondary to blood loss (chronic) (principal)
CPT/HCPCS: 85025

== ENCOUNTER → 2024-03-09 | Outpatient (CLI) | payer MEDICARE, BC ==
[~2024-03-09] MED LIST changes: +GABA300 PO
[2024-03-09 19:26] LABS: Percent Saturation 21.6 % (20.0-50.0)
== END ==
LOC: LAB 16:58 → LAB SHORT 16:58
PROVIDERS: Internal Medicine Hematology & Oncology
DX: E61.1 Iron deficiency (principal); D51.9 Vitamin B12 deficiency anemia, unspecified
CPT/HCPCS: 82607; 82728; 83540; 83550

== ENCOUNTER 2024-03-11 19:06 | Inpatient (IN) | payer MEDICARE, BC ==
[~2024-03-11] VITALS: Ht 180.3 cm; Wt 104.5 kg
[~2024-03-11 19:06] MED LIST changes: -GABA300 PO
[2024-03-11 19:32] LABS: BASOPHILS ABSOLUTE AUTO 0.03 K/mm3 (0.00-0.23); BASOPHILS PERCENT AUTO 1 % (0-2); EOSINOPHILS ABSOLUTE AUTO 0.15 K/mm3 (0.00-0.68); EOSINOPHILS PERCENT AUTO 3 % (0-6); Hematocrit 26.5 % (37.0-53.0); Hemoglobin 8.4 g/dL (13.5-17.5); IMMATURE GRAN ABSOLUTE AUTO 0.03 K/mm3 (0.00-0.10); IMMATURE GRAN PERCENT AUTO 1 % (0-1); LYMPHOCYTES ABSOLUTE AUTO 1.22 K/mm3 (0.84-5.20); LYMPHOCYTES PERCENT AUTO 28 % (21-46); MONOCYTES ABSOLUTE AUTO 0.62 K/mm3 (0.16-1.47); MONOCYTES PERCENT AUTO 14 % (4-13); Mean Corpuscular HGB 30.1 pg (26.0-34.0); Mean Corpuscular HGB Conc 31.7 g/dL (31.5-36.5); Mean Corpuscular Volume 95 fL (80-100); Mean Platelet Volume 10.9 fL (9.1-12.4); NEUTROPHILS ABSOLUTE AUTO 2.34 K/mm3 (1.96-9.15); NEUTROPHILS PERCENT AUTO 53 % (41-73); Platelet Count 134 K/mm3 (150-400); RDW Coefficient Variation 12.8 % (11.7-14.2); RDW Standard Deviation 44.3 fL (35.1-46.3); Red Blood Cell Count 2.79 M/mm3 (4.30-5.90); White Blood Cell Count 4.39 K/mm3 (4.00-11.30)
[2024-03-11 19:58] LABS: Albumin, Blood 3.1 g/dL (3.4-5.0); Albumin/Globulin Ratio 1.2 (0.8-1.8); Bilirubin, Total 0.3 mg/dL (0.1-1.0); Bun/Creatinine Ratio 28.2 (12.0-20.0); Calcium, Blood 8.6 mg/dL (8.5-10.1); Creatinine, Blood 1.77 mg/dL (0.60-1.20); Globulin, Blood 2.5 g/dL (2.2-4.0); Total Protein, Blood 5.6 g/dL (6.4-8.2)
[2024-03-11] MEDS ORDERED: FLU VACC TS2024-25(6MOS UP)/PF 45 MCG/0.5 ML SYRINGE IM ONE (21:00)
[2024-03-11] MEDS ORDERED: Aspirin 325 MG Tab PO ONE (22:00)
[2024-03-11 22:17] VITALS: BP 131/71
--- NOTE | 2024-03-11 22:46 | NUR ---
ADMISSION REPORT RECEIVED FROM ER NURSE. PATIENT ARRIVES TO PCU 02, ABLE TO STAND AND PIVOT TO PCU BED WITH ASSISTANCE. ORIENTED x4, ABLE TO ANSWER ALL QUESTIONS APPROPRIATELY AND IS PARTICIPATING IN ADMISSION. BP STABLE. PATIENT ON RA WITH SPO2 >90%. TELE READING SR 1st DEGREE HB 80s PER PATROL SERGEANT SHERIFF'S OFFICE. PATIENT REPORTING MILD CHEST PAIN BUT STATES "ANNOYING, DULL PAIN" AND "NITRO USUALLY HELPS ME BUT THIS IS STICKING AROUND THIS TIME". PATIENT REQUESTING FOOD PRIOR TO MIDNIGHT D/T NPO AFTER FOR POSSIBLE PROCEDURES ON DAY SHIFT. PATIENT EDUCATED MOTOR POOL CLERK LIGHT SYSTEM AND TO CALL IF PATIENT NEEDS TO GET UP. REPORTS HE USES A WALKER AT BASELINE. DENIES FURTHER NEEDS AT THIS TIME. BED IN LOW POSITION, HAS CALL LIGHT.
[2024-03-12] VITALS (15 sets, daily range): BP systolic 85–139; BP diastolic 40–87
[2024-03-12] MEDS ORDERED: Insulin Human Lispro 100 Units/ML 3ML Syringe SC SCH
[2024-03-12 04:35] LABS: Bun/Creatinine Ratio 27.9 (12.0-20.0); Calcium, Blood 8.7 mg/dL (8.5-10.1); Creatinine, Blood 1.65 mg/dL (0.60-1.20); Potassium, Blood 4.7 mmol/L (3.5-5.5)
[2024-03-12] MEDS ORDERED: Morphine Sulfate 10 MG/ML 1MLSYR IV PRN (06:00)
[2024-03-12] MEDS ORDERED: Morphine Sulfate 10 MG/ML 1MLSYR IV ONE (06:00)
--- NOTE | 2024-03-12 06:00 | NUR ---
SHIFT SUMMARY PATIENT ALERT, ORIENTED x4. ABLE TO MAKE NEEDS KNOWN TO STAFF. BP STABLE. PATIENT ON RA WITH SPO2 >90%. ON TELE READING SR WITH 1ST DEGREE HB PER SUPERVISOR POLICY CHANGE CLERKS. PATIENT REPORTING SOME CHEST PAIN DURING THE NIGHT BUT DID NOT REQUEST ANY PAIN RELIEF MEASURES UNTIL THIS MORNING. RESIDENT UPDATED WITH INCREASING TROPONINS AND PAIN, RESIDENT PLACED ORDERS FOR PAIN MEDICATION AND HEPARIN GTT. PATIENT USING URINAL INDEPENDENTLY, ATTENDS IN PLACE. PATIENT NPO SINCE 0000 FOR POSSIBLE PROCEDURES DURING DAY SHIFT. NO OTHER CHANGES, WILL REPORT TO DAY SHIFT RN.
[2024-03-12] MEDS ORDERED: Heparin Sodium,Porcine/0.5 NS 500 ML IV SCH (06:55)
[2024-03-12 06:56] LABS: Anti-Xa UFH, PHA Monitoring 0.81 IU/mL; International Normalized Ratio 1.05; Prothrombin Time Results 11.2 Sec (9.7-11.5)
[2024-03-12] MEDS ORDERED: GABA300 PO (08:17)
[2024-03-12] MEDS ORDERED: Tamsulosin HCl 0.4 MG Cap PO SCH (09:00)
[2024-03-12] MEDS ORDERED: Atorvastatin 40 MG Tab PO SCH (09:00)
[2024-03-12] MEDS ORDERED: Furosemide 40 MG Tab PO SCH (09:00)
[2024-03-12] MEDS ORDERED: Acetaminophen 325 MG TABLET PO PRN (09:45)
[2024-03-12] MEDS ORDERED: HYDROcodone 5-APAP 325 TAB PO PRN (09:50)
[2024-03-12] MEDS ORDERED: Dose Adjust by Pharmacy XX STA ×2 (13:20→18:39)
[2024-03-12] MEDS ORDERED: NS 500 ML IV ONE (13:45)
[2024-03-12] MEDS ORDERED: Gabapentin 300 MG Cap PO SCH (14:00)
[2024-03-12] MEDS ORDERED: Lactobacil 2-S.Thermo-Bifido 1 1 Cap PO SCH (21:00)
[2024-03-12] MEDS ORDERED: Doxycycline Hyclate 100 MG TAB PO SCH (21:00)
[2024-03-12] MEDS ORDERED: Pramipexole DI-HCL 0.125 MG Tab PO SCH (21:00)
[2024-03-12] MEDS ORDERED: Ranolazine 500 MG ER Tablet PO SCH (21:00)
[2024-03-13] VITALS (17 sets, daily range): BP systolic 75–117; BP diastolic 40–91
[2024-03-13 01:21] LABS: Hematocrit 24.3 % (37.0-53.0); Hemoglobin 7.9 g/dL (13.5-17.5); Mean Corpuscular HGB 30.5 pg (26.0-34.0); Mean Corpuscular HGB Conc 32.5 g/dL (31.5-36.5); Mean Corpuscular Volume 94 fL (80-100); Mean Platelet Volume 11.1 fL (9.1-12.4); Platelet Count 143 K/mm3 (150-400); RDW Coefficient Variation 12.7 % (11.7-14.2); Red Blood Cell Count 2.59 M/mm3 (4.30-5.90); White Blood Cell Count 6.59 K/mm3 (4.00-11.30)
[2024-03-13 01:35] LABS: Bun/Creatinine Ratio 28.8 (12.0-20.0); Calcium, Blood 8.1 mg/dL (8.5-10.1); Creatinine, Blood 1.77 mg/dL (0.60-1.20); Potassium, Blood 5.2 mmol/L (3.5-5.5)
[2024-03-13] MEDS ORDERED: Dose Adjust by Pharmacy XX STA ×3 (02:04→23:54)
--- NOTE | 2024-03-13 05:32 | NUR ---
SHIFT SUMMARY PATIENT ALERT, ORIENTED x4. ABLE TO MAKE NEEDS KNOWN TO STAFF. BP STABLE. ON CARDIAC MONITORING. REPEAT EKG PERFORMED THIS AM D/T CONTINUED CHEST PAIN DURING THE NIGHT, ON FRONT OF CHART. MEDICATED PER EMAR WITH RELIEF. HEPARIN GTT INFUSING PER EMAR. REMAINED ON RA, SPO2 >90%. PATIENT USING URINAL, ADEQUATE OUTPUT THIS SHIFT. PATIENT NPO SINCE 0000 FOR ANGIO DURING DAY SHIFT. NO OTHER CHANGES, WILL REPORT TO DAY SHIFT RN.
[2024-03-13] MEDS ORDERED: Nitroglycerin Patch 0.4 MG / HR TOP SCH (06:00)
[2024-03-13 07:08] LABS: Hemoglobin 7.8 g/dL (13.5-17.5); Mean Platelet Volume 11.1 fL (9.1-12.4); Platelet Count 150 K/mm3 (150-400)
[2024-03-13] MEDS ORDERED: Heparin Sodium 1000 Units/ML 10ML MDV ONE (08:32)
[2024-03-13] MEDS ORDERED: NS 1,000 ML IV ONE ×2 (08:33→08:37)
[2024-03-13] MEDS ORDERED: NS 250 ML IV ONE (08:33)
[2024-03-13] MEDS ORDERED: Nitroglycerin 2 MG/20 ML BTL ONE (08:33)
[2024-03-13] MEDS ORDERED: Phenylephrine HCl 100 MCG/ML-NS 10MLSYR (1MG/10ML) ONE (08:38)
[2024-03-13] MEDS ORDERED: Atropine Sulfate 0.1 MG/ML 10ML SYR ONE (08:38)
[2024-03-13] MEDS ORDERED: Midazolam HCl 1MG / ML 2ML Vial ONE ×2 (08:39→10:12)
[2024-03-13] MEDS ORDERED: FentaNYL Citrate 50 MCG/ML 2 ML Injection ONE ×2 (08:39→10:12)
[2024-03-13] MEDS ORDERED: Potassium Chloride 20 MEQ TabCR PO SCH (09:00)
[2024-03-13] MEDS ORDERED: Citalopram Hydrobromide 20 MG Tab PO SCH (09:00)
[2024-03-13] MEDS ORDERED: Ferrous Sulfate 325 MG Tab PO SCH (09:00)
[2024-03-13 11:51] LABS: Cholesterol 153 mg/dL (50-200); HDL Cholesterol 38 mg/dL (>39); LDL/HDL RATIO 2.4; Low Density Lipoprotein Chol 93 mg/dL (0-110); Triglycerides 111 mg/dL (30-160); Very Low Density Lipoprot Chol 22 mg/dL (6-32)
[2024-03-13] MEDS ORDERED: NS 1,000 ML IV SCH (13:40)
--- NOTE | 2024-03-13 15:57 | NUR ---
UPDATE PT TO ANGIO THIS AM. BACK TO ROOM APPROX 1130. PT W/ R FEMORAL SITE, AQUASEAL, NO SIGNS OF BRUISING/BLEEDING/HEMATOMA. PT C/O OF HIP PAIN LAYING FLAT. ICE PACK APPLIED. MD CORDOBA IN ROOM TO DISCUSS POST PROCEDURE W/ PT AND . OKAYED PUTTING PILLOW UNDER KNEES. PT'S BLOOD PRESSURE SOFT. MD CORDOBA W/ ORDERS FOR NS AT 100 MLS/HR, INFUSING CURRENTLY. 4 HOURS POST ANGIO, PT HOB RAISED 15 DEGREES. NO SIGNS OF BLEEDING/BRUISING/HEMATOMA. PT BP REMAINS SOFT. CALL PLACED TO MD QUINTANILLA. MD QUINTANILLA W/ ORDERS TO CONTINUE MONITORING AND CONTINUE FLUIDS. ORDERS TO REPORT IF PT BECOMES SYMPTOMATIC. CALL LIGHT IN REACH.
--- NOTE | 2024-03-13 16:48 | NUR ---
UPDATE PT HEP GTT RESTARTED AT THIS TIME PER CK. PHARMACY NOTIFIED. FEMORAL SITE NO SIGNS OF BLEEDING/BRUISING/HEMATOMA. BP SOFT.
[2024-03-13] MEDS ORDERED: Clopidogrel Bisulfate 300 MG Cap PO ONE (17:00)
--- NOTE | 2024-03-13 17:09 | NUR ---
SHIFT SUMMARY NO ACUTE CHANGES SINCE CARE ASSUMPTION AND UPDATES. SEE PREVIOUS NOTES. PT REMAINS ALERT AND ORIENTED. PT DESATS WHILE SLEEPING, STATES HE WEARS CPAP AT HOME. TO BRING IN HOME CPAP. MD QUINTANILLA W/ ORDERS FOR CPAP. CALL LIGHT IN REACH.
[2024-03-13] MEDS ORDERED: NS 500 ML IV ONE (18:55)
[2024-03-13 19:16] LABS: Hematocrit 26.6 % (37.0-53.0); Hemoglobin 8.5 g/dL (13.5-17.5)
[2024-03-13 19:35] LABS: Percent Saturation 17.8 % (20.0-50.0)
[2024-03-14] VITALS (7 sets, daily range): BP systolic 91–154; BP diastolic 56–137
[2024-03-14 07:03] LABS: Hematocrit 25.2 % (37.0-53.0); Hemoglobin 8.1 g/dL (13.5-17.5); Mean Platelet Volume 11.5 fL (9.1-12.4); Platelet Count 156 K/mm3 (150-400)
--- NOTE | 2024-03-14 07:24 | NUR ---
SHIFT SUMMARY ASSUMED CARE OF PT AT 1900. PT A&O4 COOPERATIVE IN CARE AND ABLE TO MAKE NEEDS KNOWN. BP SOFT BUT MAP MAINTAINED AT/ABOVE 65 WITH NS RUNNING AT 100ML/HR. PT PLACE SELF ON HOME CPAP ONCE READY FOR SLEEP. PT DENIES CP AND SOB. HEP GTTS TRITATED PER PHARM ORDER. BED IN LOWEST POSITION AND CALL LIGHT WITHIN REACH. GI CONSULT CALLED IN BY CHARGE TO ANSWERING SERVICE.
[2024-03-14] MEDS ORDERED: Dose Adjust by Pharmacy XX STA ×3 (07:35→20:54)
[2024-03-14] MEDS ORDERED: Clopidogrel Bisulfate 75 MG Tab PO SCH (09:00)
[2024-03-14] MEDS ORDERED: Sod Ferric Gluc Complx/Sucrose 125 MG in NS 100 ML IV SCH (10:30)
[2024-03-14] MEDS ORDERED: Insulin Human Lispro 100 Units/ML 3ML Syringe SC SCH (11:30)
--- NOTE | 2024-03-14 18:33 | NUR ---
SHIFT SUMMARY; ASSUMED CARE AT 0700. A/A/OX4. RIGHT GROIN SITE WITH ANGIO SEAL C/D/I, NO BRUSING OR SWELLING. HEPARIN GTT AT 17UNITS/KG. VSS, INSULIN PER EMAR. NO BM TODAY, AWAITING GUIAC PER ONCALL GI. PLEASANT AND COOPERATIVE WITH CARE. TO CHAIR FOR MEALS WITH FWW AND SBA. WILL CONTINUE TO MONITOR AND TREAT UNTIL CHANGE OF SHIFT.
[2024-03-14] MEDS ORDERED: Polyethylene Glycol 3350 17 gm PO ONE (21:25)
[2024-03-15 00:04] VITALS: BP 82/58
[2024-03-15 00:05] VITALS: BP 81/55
[2024-03-15 00:07] VITALS: BP 76/58
[2024-03-15 00:13] VITALS: BP 86/60
[2024-03-15] MEDS ORDERED: Lactated Ringer's 500 ML IV ONE (00:30)
[2024-03-15 01:19] VITALS: BP 90/63
[2024-03-15 02:22] LABS: Hemoglobin 7.9 g/dL (13.5-17.5); Mean Corpuscular HGB 30.9 pg (26.0-34.0); Mean Corpuscular HGB Conc 32.9 g/dL (31.5-36.5); Mean Corpuscular Volume 94 fL (80-100); Mean Platelet Volume 11.1 fL (9.1-12.4); Platelet Count 142 K/mm3 (150-400); RDW Coefficient Variation 12.6 % (11.7-14.2); RDW Standard Deviation 43.1 fL (35.1-46.3); Red Blood Cell Count 2.56 M/mm3 (4.30-5.90); White Blood Cell Count 11.14 K/mm3 (4.00-11.30)
[2024-03-15 02:41] LABS: Albumin, Blood 2.9 g/dL (3.4-5.0); Anion Gap 12 mmol/L (3-11); Blood Urea Nitrogen 52 mg/dL (8-24); Bun/Creatinine Ratio 23.9 (12.0-20.0); CO2, Blood 20 mmol/L (21-32); Calcium, Blood 8.7 mg/dL (8.5-10.1); Chloride, Blood 105 mmol/L (98-108); Creatinine, Blood 2.18 mg/dL (0.60-1.20); Glomerular Filtration Rate 30 (60-); Glucose, Blood 218 mg/dL (70-99); Potassium, Blood 6.1 mmol/L (3.5-5.5); Sodium, Blood 131 mmol/L (136-145)
[2024-03-15] MEDS ORDERED: Dose Adjust by Pharmacy XX STA (02:46)
--- NOTE | 2024-03-15 03:20 | NUR ---
UPDATE THIS RN RECEIVED CRITICAL POTASSIUM RESULT OF 6.1 WHILE PRIMARY RN WAS ON BREAK. NIGHTSHIFT RESIDENT DR. PINEDO NOTIFIED. MD TO COME TO BEDSIDE TO EXAMINE PT WELL CHART, THEN TO PLACE ORDERS. ORDERS RECEIVED FOR NEW EKG, AND LAB TO BE REDRAWN. NO OTHER ORDERS AT THIS TIME.
[2024-03-15] MEDS ORDERED: Pantoprazole Sodium 40 MG Tab PO SCH (06:00)
--- NOTE | 2024-03-15 06:27 | NUR ---
SHIFT SUMMARY AND CODE BLUE ASSUMED CARE OF PT AT 1900. PT A&O3, CONFUSED TO SITUATION AT TIMES AND AT TIMES CONFUSED TO LOCATION. PT DENIED ANY CP T/O THE NIGHT AND NO SOB REPORTED. PT'S BP AT MIDNIGHT ROUNDS WAS LOWER THAN NORMAL BUT MAINTIANED A MAP OF 65. COREMAKER BENCH NOTIFED RESIDENT VIDEOTAPE SALES REPRESENTATIVE; ORDERED 500ML BOLUS, BP RAISED AFTER BOLUS. CRITICAL LAB RESULTED AND CALL WHILE THIS RN WAS ON BREAK. COREMAKER BENCH TOOK CRITICAL, NOTIFED OVERNIGHT VIDEOTAPE SALES REPRESENTATIVE RESIDENT, ORDERED A REPEAT POTASSIUM ALONG W EKG. EKG COMPLETED AND FINDINGS REPORTED AND SHOWN TO RESIDENT. WAITING ON REPEAT LABS TO RESULT. DURING THIS TIME, TELE ALARM BEGAN TO GO OFF IN PTS ROOM AND HEARD PT YELL OUT. THIS RN RAN TO PT'S ROOM AND FOUND PT TO BE UNRESPONSIVE, CHECKED FOR PULSE, NO PULSE FOUND AND IMMEDIATELY BEGAN CHEST COMPRESSIONS. OTHER STAFF CAME IN AND BEGAIN ACLS. UPDATED MD HE ENETERED THE ROOM. ACLS CONTINUED UNTIL 427 WHEN TOD WAS CALLED. [facility] NOTIFED DONATION LINE AND THIS RN SPOKE TO PRIOR TO ENTERING THE ROOM. LEFT WITH PT'S BELONGING.
--- NOTE | 2024-03-15 07:04 | NUR ---
UPDATE RECEIVED CALL FROM [facility] DONATION LINE. PT ABLE TO BE RELEASED TO [facility]. [facility] NOTIFIED OF NEED FOR [facility].
[2024-03-15] MEDS ORDERED: Aspirin 81 MG Chew PO SCH (09:00)
[2024-03-15] MEDS ORDERED: Atropine Sulfate 0.1 MG/ML 10ML SYR IV ONE (11:51)
[2024-03-15] MEDS ORDERED: EPINEPhrine HCl 0.1 MG/ML 10ML SYR IV ONE (11:51)
[2024-03-15] MEDS ORDERED: Sodium Bicarb 8.4% 1 MEQ/ML 50 ML Vial IV ONE (11:51)
[2024-03-15] MEDS ORDERED: Calcium Chloride 10% 10 ML SYR IV ONE (11:51)
== END 2024-03-15 08:11 ==
LOC: ER 19:06 → ERHOLD 19:07 → PCU 19:07
PROVIDERS: Emergency Medicine; Family Medicine; Internal Medicine; Nurse Practitioner Acute Care; Student in an Organized Health Care Education/Training Program; ADMIT Student in an Organized Health Care Education/Training Program
PROC: 3E03329 Introduction of Other Anti-infective into Peripheral Vein, Percutaneous Approach (ICD-10-PCS; 2024-03-11)
PROC: B2111ZZ Fluoroscopy of Multiple Coronary Arteries using Low Osmolar Contrast (ICD-10-PCS; principal; 2024-03-13)
PROC: 4A023N7 Measurement of Cardiac Sampling and Pressure, Left Heart, Percutaneous Approach (ICD-10-PCS; 2024-03-13)
PROC: B240ZZ3 Ultrasonography of Single Coronary Artery, Intravascular (ICD-10-PCS; 2024-03-13)
PROC: B2131ZZ Fluoroscopy of Multiple Coronary Artery Bypass Grafts using Low Osmolar Contrast (ICD-10-PCS; 2024-03-13)
PROC: B2181ZZ Fluoroscopy of Left Internal Mammary Bypass Graft using Low Osmolar Contrast (ICD-10-PCS; 2024-03-13)
PROC: 5A09357 Assistance with Respiratory Ventilation, Less than 24 Consecutive Hours, Continuous Positive Airway Pressure (ICD-10-PCS; 2024-03-13)
PROC: 5A2204Z Restoration of Cardiac Rhythm, Single (ICD-10-PCS; 2024-03-15)
PROC: 5A12012 Performance of Cardiac Output, Single, Manual (ICD-10-PCS; 2024-03-15)
PROC: 0BH17EZ Insertion of Endotracheal Airway into Trachea, Via Natural or Artificial Opening (ICD-10-PCS; 2024-03-15)
PROC: 5A1935Z Respiratory Ventilation, Less than 24 Consecutive Hours (ICD-10-PCS; 2024-03-15)
PROC: 3E033XZ Introduction of Vasopressor into Peripheral Vein, Percutaneous Approach (ICD-10-PCS; 2024-03-15)
DX: I21.4 Non-ST elevation (NSTEMI) myocardial infarction (principal); I48.20 Chronic atrial fibrillation, unspecified; I48.92 Unspecified atrial flutter; N17.9 Acute kidney failure, unspecified; T82.857A Stenosis of other cardiac prosthetic devices, implants and grafts, initial encounter; I25.10 Atherosclerotic heart disease of native coronary artery without angina pectoris; D50.9 Iron deficiency anemia, unspecified; I12.9 Hypertensive chronic kidney disease with stage 1 through stage 4 chronic kidney disease, or unspecified chronic kidney disease; I95.9 Hypotension, unspecified; N18.30 Chronic kidney disease, stage 3 unspecified; F32.9 Major depressive disorder, single episode, unspecified; N40.0 Benign prostatic hyperplasia without lower urinary tract symptoms; M48.061 Spinal stenosis, lumbar region without neurogenic claudication; E78.00 Pure hypercholesterolemia, unspecified; E66.9 Obesity, unspecified; E11.22 Type 2 diabetes mellitus with diabetic chronic kidney disease; E11.65 Type 2 diabetes mellitus with hyperglycemia; E87.6 Hypokalemia; D69.6 Thrombocytopenia, unspecified; D63.1 Anemia in chronic kidney disease; G89.29 Other chronic pain; G25.81 Restless legs syndrome; E11.42 Type 2 diabetes mellitus with diabetic polyneuropathy; I35.0 Nonrheumatic aortic (valve) stenosis; I44.7 Left bundle-branch block, unspecified; G47.33 Obstructive sleep apnea (adult) (pediatric); K21.9 Gastro-esophageal reflux disease without esophagitis; M51.16 Intervertebral disc disorders with radiculopathy, lumbar region; Z68.33 Body mass index [BMI] 33.0-33.9, adult; Z95.1 Presence of aortocoronary bypass graft; Z79.84 Long term (current) use of oral hypoglycemic drugs; Z79.899 Other long term (current) drug therapy; Z86.14 Personal history of Methicillin resistant Staphylococcus aureus infection; Z79.01 Long term (current) use of anticoagulants; Z90.89 Acquired absence of other organs; Z98.890 Other specified postprocedural states; Z87.891 Personal history of nicotine dependence; Z88.8 Allergy status to other drugs, medicaments and biological substances; Z79.4 Long term (current) use of insulin; Z95.3 Presence of xenogenic heart valve; Y83.1 Surgical operation with implant of artificial internal device as the cause of abnormal reaction of the patient, or of later complication, without mention of misadventure at the time of the procedure
CPT/HCPCS: 31500; 36415; 71045; 76937; 80048; 80053; 80061; 80069; 82607; 82728; 82947; 83540; 83550; 83880; 84132; 84484; 85014; 85018; 85025; 85027; 85049; 85347; 85520; 85610; 85730; 92950; 93005; 93010; 93306; 93455; 94762; 96374; 96375; 96376; 99152; 99153; 99285-25; A9270; C1753; C1760; C1769; C1887; C1894; G0378; J0461; J1644; J2250; J2270; J2371; J2916; J3010; J7030; J7040; J7050; J7120; Q9967